=== PATIENT | female | born 1955 | race Caucasian/White ===

== ENCOUNTER 2016-05-20 08:05 | Outpatient (CLI) | payer OTHER | END 2016-05-20 08:06 | disposition home or self-care (01) | DX: E03.9 Hypothyroidism, unspecified (principal); E78.2 Mixed hyperlipidemia; E53.8 Deficiency of other specified B group vitamins; R73.09 Other abnormal glucose; Z79.899 Other long term (current) drug therapy ==

== ENCOUNTER 2017-05-07 16:02 | Outpatient (CLI) | payer OTHER ==
--- NOTE | 2017-05-08 15:25 | Mammography Report ---
DIGITAL SCREENING MAMMOGRAM; 05/07/2017 CLINICAL INDICATION: A 62-year-old nulliparous patient with history of benign left breast biopsy, for screening. COMPARISON: 02/2015, 11/2012, 08/2011, 03/2009. TECHNIQUE: Routine CC and MLO projections were obtained of the breasts. FINDINGS: The breasts again demonstrate heterogeneously dense fibroglandular parenchyma bilaterally. Punctate, typically benign calcifications are present. There is a possible nodule in the left upper inner anterior breast. Further evaluation with spot compression views and possible ultrasound is recommended. No mammographically suspicious findings are appreciated in the right breast. IMPRESSION: INCOMPLETE EXAMINATION. RECOMMENDATION: ADDITIONAL EVALUATION OF THE LEFT BREAST ABOVE. BIRADS CATEGORY 0-INCOMPLETE. STANDARD QUALIFYING STATEMENTS: 1. This examination was reviewed with the aid of Computer-Aided Detection (CAD). 2. A negative or benign imaging report should not delay biopsy if clinically suspicious findings are present. Consider surgical consultation if warranted. More than 5% of cancers are not identified by imaging. 3. Dense breasts may obscure an underlying neoplasm. TD: 05/08/2017 15:23
== END 2017-05-07 16:03 | disposition home or self-care (01) ==
LOC: DI 16:02
PROVIDERS: ATTEND Internal Medicine
DX: Z12.31 Encounter for screening mammogram for malignant neoplasm of breast (principal); R92.8 Other abnormal and inconclusive findings on diagnostic imaging of breast
CPT/HCPCS: 77067

== ENCOUNTER 2017-06-22 13:55 | Outpatient (CLI) | payer OTHER ==
--- NOTE | 2017-06-22 17:12 | Ultrasound Report ---
ULTRASOUND LEFT BREAST: 06/22/2017 CLINICAL INDICATION: Nodule on diagnostic. TECHNIQUE: Real-time scanning was performed with sales representative [employer] static images obtained. FINDINGS: Ultrasound of the left upper inner quadrant was performed. At the 11:30 position, 3 cm from the nipple, there is a hypoechoic predominantly circumscribed nodule measuring 1.2 x 1.0 x 0.7 cm. It demonstrates minimal associated vascularity and posterior acoustic enhancement. This likely represents a fibroadenoma, but pathologic confirmation is recommended. The nodule appears amenable to ultrasound-guided core needle biopsy. IMPRESSION: SUSPICIOUS SOLID NODULE CORRELATING WITH THE MAMMOGRAPHIC ABNORMALITY. RECOMMENDATION: Biopsy. The nodule appears amenable to ultrasound-guided core needle biopsy. BI-RADS category 4 suspicious abnormality. Results and recommendations discussed with the patient at the time of the examination, and called to Dr. Zuleta on 06/22/2017. Biopsy is scheduled on 07/16/2017 at 9 a.m. TD: 06/22/2017 17:11
--- NOTE | 2017-06-22 17:36 | Mammography Report ---
DIGITAL DIAGNOSTIC LEFT MAMMOGRAM: 06/22/2017 CLINICAL INDICATION: Possible nodule on screening. TECHNIQUE: Left true lateral and spot compression views. COMPARISON: 05/07/2017, 03/07/2015, 12/10/2012, 09/01/2011. FINDINGS: The left breast again demonstrates heterogeneously dense fibroglandular parenchyma. The circumscribed nodule in the left upper inner anterior breast persists on additional compression, measuring approximately 1 cm. No associated calcifications are seen. Please also refer to left breast ultrasound of the same day. IMPRESSION: SUSPICIOUS ABNORMALITY, WITH A SOLID NODULE ON ULTRASOUND CORRELATING WITH THE MAMMOGRAPHIC ABNORMALITY. RECOMMENDATION: Biopsy. The nodule appears amenable to ultrasound-guided core needle biopsy. BI-RADS category 4 suspicious abnormality. Results and recommendations discussed with the patient at the time of the examination, and called to Dr. Zuleta on 06/22/2017. Biopsy is scheduled for 07/16/2017 at 9 a.m. STANDARD QUALIFYING STATEMENTS 1. This examination was reviewed with the aid of Computed-Aided Detection (CAD). 2. A negative or benign imaging report should not delay biopsy if clinically suspicious findings are present. Consider surgical consultation if warranted. More than 5% of cancers are not identified by imaging. 3. Dense breasts may obscure an underlying neoplasm. TD: 06/22/2017 17:35
== END 2017-06-22 13:56 | disposition home or self-care (01) ==
LOC: DI 13:55
PROVIDERS: ATTEND Internal Medicine
DX: R92.8 Other abnormal and inconclusive findings on diagnostic imaging of breast (principal); N63.0 Unspecified lump in unspecified breast
CPT/HCPCS: 76642

== ENCOUNTER 2017-07-10 09:13 | Outpatient (CLI) | payer OTHER ==
[2017-07-10 13:24] LABS: BASOPHILS # (AUTO) 0.1 10^3/uL (0.0-0.1); BASOPHILS % (AUTO) 1.3 %; EOSINOPHILS # (AUTO) 0.2 10^3/uL (0.0-0.7); EOSINOPHILS % (AUTO) 4.3 %; LYMPHOCYTES # (AUTO) 1.2 10^3/uL (1.5-3.5); LYMPHOCYTES % (AUTO) 25.5 %; MEAN CORPUSCULAR HEMOGLOBIN 31.6 pg (27.0-31.0); MEAN CORPUSCULAR HGB CONC 33.7 g/dL (32.0-36.0); MEAN CORPUSCULAR VOLUME 93.7 fL (81.0-99.0); MEAN PLATELET VOLUME 7.8 fL (7.9-10.8); MONOCYTES # (AUTO) 0.4 10^3/uL (0.0-1.0); MONOCYTES % (AUTO) 9.5 %; NEUTROPHILS # (AUTO) 2.8 10^3/uL (1.5-6.6); NEUTROPHILS % (AUTO) 59.4 %; PLT - PLATELET COUNT 342 10^3/uL (130-450); RED BLOOD COUNT 4.13 10^6/uL (4.20-5.40); WHITE BLOOD COUNT 4.7 x10^3/uL (4.8-10.8)
[2017-07-10 13:42] LABS: ALBUMIN 4.5 g/dL (3.2-5.5); ALBUMIN/GLOBULIN RATIO 1.9 (1.0-2.2); ALKALINE PHOSPHATASE 20 IU/L (42-121); ALT ALANINE AMINOTRANSFERASE 20 IU/L (10-60); AST ASPARTATE AMINOTRANSFERASE 24 IU/L (10-42); BILIRUBIN,TOTAL 0.5 mg/dL (0.2-1.0); BUN - BLOOD UREA NITROGEN 12 mg/dL (6-20); CALCIUM 9.3 mg/dL (8.5-10.3); CARBON DIOXIDE - CO2 27 mmol/L (21-32); CHLORIDE 102 mmol/L (101-111); CHOL/HDL RATIO 1.9 (<4.4); CHOLESTEROL 243 mg/dL; CREATININE 0.6 mg/dL (0.4-1.0); GFR - MDRD 101 (>89); GLUCOSE 92 mg/dL (70-100); HDL CHOLESTEROL 128 mg/dL; LDL CHOLESTEROL,CALCULATED 106 mg/dL; LDL/HDL RATIO 0.8 (<4.4); SODIUM 136 mmol/L (135-145); TOTAL PROTEIN 6.9 g/dL (6.7-8.2); VLDL CHOLESTEROL 9 mg/dL
[2017-07-10 13:49] LABS: THYROID STIMULATING HORMONE 2.63 uIU/mL (0.34-5.60)
[2017-07-10 14:10] LABS: HB2 TOTAL 14.3 g/dL; HEMOGLOBIN A1C 0.51 g/dL; HEMOGLOBIN A1C % 5.4 % (4.6-6.2)
== END 2017-07-10 09:14 | disposition home or self-care (01) ==
LOC: LAB.R 09:13
PROVIDERS: ATTEND Nurse Practitioner Primary Care
DX: E55.9 Vitamin D deficiency, unspecified (principal); Z79.899 Other long term (current) drug therapy; R73.01 Impaired fasting glucose; E03.9 Hypothyroidism, unspecified; E78.5 Hyperlipidemia, unspecified
CPT/HCPCS: 80053; 80061; 82306; 82607; 83036; 83721; 84443; 85025

== ENCOUNTER 2017-07-16 08:28 | Outpatient (CLI) | payer OTHER ==
--- NOTE | 2017-07-16 13:21 | Ultrasound Report ---
ULTRASOUND-GUIDED CORE NEEDLE BIOPSY OF LEFT BREAST: 07/16/2017 CLINICAL INDICATION: Target nodule measuring 1.2 cm at the 11:30 position of the left breast 3 cm from the nipple. TECHNIQUE/FINDINGS: Informed consent was obtained. Using standard aseptic technique, both 1% buffered lidocaine and Sensorcaine were injected into the left breast for local anesthesia. A small shannan was made in the skin with a #11 blade. A 12-gauge Celero vacuum-assisted device was used to obtain three specimens. A Celero marker was placed in the biopsy cavity under ultrasound guidance. The patient was taken to a separate mammography machine, and a two view digital mammogram was performed, documenting the marker in the expected location and no significant postbiopsy hematoma. The wound was dressed and ice applied. The patient was observed for approximately 15 minutes, then was discharged from [facility] in good condition following instructions on wound care and obtaining biopsy results. The tissue was sent for histologic analysis. IMPRESSION: 1. ULTRASOUND-GUIDED BIOPSY OF THE LEFT BREAST. 2. AN ADDENDUM WILL BE MADE TO THIS REPORT WHEN PATHOLOGY IS REVIEWED TO ESTABLISH CONCORDANCE. TD: 07/16/2017 12:43
[2017-07-16] MEDS ORDERED: LIDOCAINE 1% 10 ML MDV SUBQ ONE (14:07)
[2017-07-16] MEDS ORDERED: BUPIVACAINE 0.5%-EPI 1:200000 PF 10 ML VIAL SUBQ ONE (14:07)
--- NOTE | 2017-08-31 13:41 | Mammography Report ---
EXAM: [id number] US/BX ([id number]) ULTRASOUND-GUIDED CORE NEEDLE BIOPSY OF LEFT BREAST: 07/16/2017 CLINICAL INDICATION: Target nodule measuring 1.2 cm at the 11:30-position of the left breast 3 cm from the nipple. TECHNIQUE/FINDINGS: Informed consent was obtained. Using standard aseptic technique, both 1% buffered lidocaine and Sensorcaine were injected into the left breast for local anesthesia. A small shannan was made in the skin with a #11 blade. A 12-gauge Celero vacuum- assisted device was used to obtain three specimens. A Celero marker was placed in the biopsy cavity under ultrasound guidance. The patient was taken to a separate mammography machine, and a two view digital mammogram was performed, documenting the marker in the expected location and no significant postbiopsy hematoma. The wound was dressed and ice applied. The patient was observed for approximately 15 minutes, then was discharged from [facility] in good condition following instructions on wound care and obtaining biopsy results. The tissue was sent for histologic analysis. IMPRESSION 1. ULTRASOUND-GUIDED BIOPSY OF THE LEFT BREAST. 2. AN ADDENDUM WILL BE MADE TO THIS REPORT WHEN PATHOLOGY IS REVIEWED TO ESTABLISH CONCORDANCE. TD: 07/16/2017 12:43 Able Bodied Seaman: Cristel Radiologist: Javier Cheatham MD Releasing Radiologist: Javier Cheatham MD Released Date Time: 07/16/17 1413 <Electronically signed by Javier Cheatham MD> cc: Joshua Zuleta MD ADDENDUM PATHOLOGY ADDENDUM OF 07/20/2017 PATHOLOGIC DIAGNOSIS ON THE LEFT BREAST CORE BIOPSY SPECIMEN: Fibroadenoma. Surrounding breast tissue negative for in situ or invasive carcinoma. Results are concordant with the mammographic appearance. IMPRESSION: BENIGN. BIRADS CATEGORY 2 - BENIGN FINDINGS. RECOMMENDATIONS: Suggest followup mammography in 1 year. TD: 07/20/2017 16:07 Addendum Able Bodied Seaman: KAJAL Addendum Reading Radiologist: Annelise Day MD Addendum Releasing Radiologist: Annelise Day MD Addendum Released Date Time: 07/21/17 1007 REVISED: DOCUMENT INCLUDES BOTH ORDERS [id number] & [id number] COMBINED 7/16/18 jll MTDD
== END 2017-07-16 08:29 | disposition home or self-care (01) ==
LOC: DI 08:28
PROVIDERS: ATTEND Internal Medicine
DX: D24.2 Benign neoplasm of left breast (principal)
CPT/HCPCS: 19083; 88305

== ENCOUNTER 2018-04-01 08:00 | Outpatient (CLI) | payer OTHER ==
[2018-04-01 17:47] LABS: BASOPHILS # (AUTO) 0.1 10^3/uL (0.0-0.1); BASOPHILS % (AUTO) 1.3 %; EOSINOPHILS # (AUTO) 0.1 10^3/uL (0.0-0.7); EOSINOPHILS % (AUTO) 2.3 %; HGB - HEMOGLOBIN 12.5 g/dL (12.0-16.0); LYMPHOCYTES # (AUTO) 1.5 10^3/uL (1.5-3.5); LYMPHOCYTES % (AUTO) 32.7 %; MEAN CORPUSCULAR HEMOGLOBIN 31.3 pg (27.0-31.0); MEAN CORPUSCULAR HGB CONC 31.9 g/dL (32.0-36.0); MEAN CORPUSCULAR VOLUME 98.2 fL (81.0-99.0); MEAN PLATELET VOLUME 8.1 fL (7.9-10.8); MONOCYTES # (AUTO) 0.5 10^3/uL (0.0-1.0); MONOCYTES % (AUTO) 10.6 %; NEUTROPHILS # (AUTO) 2.5 10^3/uL (1.5-6.6); NEUTROPHILS % (AUTO) 53.1 %; PLT - PLATELET COUNT 319 10^3/uL (130-450); RED BLOOD COUNT 3.98 10^6/uL (4.20-5.40); WHITE BLOOD COUNT 4.6 x10^3/uL (4.8-10.8)
[2018-04-01 17:57] LABS: ALBUMIN 4.5 g/dL (3.2-5.5); ALKALINE PHOSPHATASE 22 IU/L (42-121); ALT ALANINE AMINOTRANSFERASE 22 IU/L (10-60); AST ASPARTATE AMINOTRANSFERASE 29 IU/L (10-42); BILIRUBIN,TOTAL 0.4 mg/dL (0.2-1.0); BUN - BLOOD UREA NITROGEN 18 mg/dL (6-20); CARBON DIOXIDE - CO2 25 mmol/L (21-32); CHLORIDE 104 mmol/L (101-111); CREATININE 0.7 mg/dL (0.4-1.0); GFR - MDRD 85 (>89); GLUCOSE 94 mg/dL (70-100); SODIUM 137 mmol/L (135-145); TOTAL PROTEIN 6.8 g/dL (6.7-8.2)
[2018-04-01 18:06] LABS: CRP - C-REACTIVE PROTEIN < 1.0 mg/dL (0-1.0)
== END 2018-04-01 23:59 | disposition home or self-care (01) ==
LOC: LAB.R 08:00
PROVIDERS: ATTEND Nurse Practitioner Primary Care
DX: R53.83 Other fatigue (principal); M79.10 Myalgia, unspecified site; E03.9 Hypothyroidism, unspecified; Z79.899 Other long term (current) drug therapy
CPT/HCPCS: 80053; 84443; 85025; 85651; 86140

== ENCOUNTER 2018-07-28 10:28 | Emergency (ER) | payer OTHER ==
[2018-07-28 11:01] LABS: BASOPHILS % (AUTO) 0.9 %; EOSINOPHILS # (AUTO) 0.1 10^3/uL (0.0-0.7); EOSINOPHILS % (AUTO) 2.1 %; HGB - HEMOGLOBIN 13.1 g/dL (12.0-16.0); LYMPHOCYTES # (AUTO) 1.1 10^3/uL (1.5-3.5); LYMPHOCYTES % (AUTO) 21.7 %; MEAN CORPUSCULAR HEMOGLOBIN 31.5 pg (27.0-31.0); MEAN CORPUSCULAR HGB CONC 33.7 g/dL (32.0-36.0); MEAN CORPUSCULAR VOLUME 93.4 fL (81.0-99.0); MEAN PLATELET VOLUME 7.4 fL (7.9-10.8); MONOCYTES # (AUTO) 0.5 10^3/uL (0.0-1.0); NEUTROPHILS # (AUTO) 3.2 10^3/uL (1.5-6.6); NEUTROPHILS % (AUTO) 64.3 %; PLT - PLATELET COUNT 340 10^3/uL (130-450); RED BLOOD COUNT 4.15 10^6/uL (4.20-5.40); RED CELL DISTRIBUTION WIDTH 13.2 % (12.0-15.0); WHITE BLOOD COUNT 4.9 x10^3/uL (4.8-10.8)
--- NOTE | 2018-07-28 11:11 | ED Physician Documentation ---
PD HPI ABD PAIN - Stated complaint Stated Complaint: ABD PX/NAUSEA - Chief complaint Chief Complaint: Abd Pain - History obtained from History obtained from: Patient - History of Present Illness Timing - onset: How many days ago Timing - duration: Days Timing - details: Abrupt onset, Still present, Waxing and waning Quality: Cramping, Aching, Pain Location: Periumbilical, RLQ Radiation: No: Chest, Lower back, Left flank, Right flank Improved by: Position (rested). No: Eating Worsened by: Moving, Palpation (around the umbilical and mid abdomen). No: Eating Associated symptoms: No: Fever, Nausea, Diarrhea, Constipation, Dysuria, Chest pain, Loss of appetite Similar symptoms before: Other (She had had ruptured appendicitis with peritonitis and surgery remotely in the past and developed a ventral hernia that was repaired with mesh a couple years later. She had been doing okay with that. The last few days she has been having some pain around the mid abdomen and feel s that its around the bellybutton where the prior hernia had been. She did not feel a hernia per se. She denied any distention nausea vomiting or diarrhea and has not been constipated. She does feel a little bit of bloating with eating.) Recently seen: Not recently seen Review of Systems Constitutional: denies: Fever Nose: denies: Rhinorrhea / runny nose, Congestion Throat: denies: Sore throat Respiratory: denies: Cough GI: reports: Abdominal Pain. denies: Abdominal Swelling, Nausea, Vomiting, Diarrhea : denies: Dysuria, Frequency Skin: denies: Rash, Lesions Neurologic: denies: Generalized weakness, Near syncope PD PAST MEDICAL HISTORY - Past Medical History Cardiovascular: None Respiratory: None Endocrine/Autoimmune: HyPOthyroidism GI: None ICT DEVELOPER: None HEENT: None Psych: Depression Musculoskeletal: None Derm: None - Past Surgical History Past Surgical History: Yes General: Appendectomy, Hiatal hernia repair Ortho: Knee replacement - Present Medications Home Medications: Ambulatory Orders Medication Instructions Recorded Confirmed Levothyroxine [Synthroid] 100 mcg ORAL DAILY 09/24/13 09/24/13 PARoxetine [Paxil] 20 mg ORAL DAILY 09/24/13 09/24/13 Docusate Sodium 100 mg PO DAILY #30 capsule 07/28/18 Hydrocodone/Acetaminophen [Homer 1 each PO Q6H PRN #15 tablet 07/28/18 5-325 Tablet] Naproxen 500 mg PO BID #20 tablet 07/28/18 Ondansetron Odt [Zofran] 4 mg TL Q6H PRN #20 tablet 07/28/18 - Allergies Allergies/Adverse Reactions: Allergies Allergy/AdvReac Type Severity Reaction Status Date / Time hydroxyzine Allergy Hallucinati Verified 09/24/13 11:51 ons Penicillins Allergy Hives Verified 09/24/13 11:51 morphine AdvReac Respiratory Verified 07/28/18 10:36 - Social History Does the pt smoke?: No Smoking Status: Never smoker Does the pt drink ETOH?: Yes Does the pt have substance abuse?: No - Immunizations Immunizations are current?: No Immunizations: TDAP >10years/unknown PD ED PE NORMAL - Vitals Vital signs reviewed: Yes - General General: Alert and oriented X 3, No acute distress, Well developed/nourished - HEENT HEENT: Pharynx benign - Neck Neck: Supple, no meningeal sign, No adenopathy - Cardiac Cardiac: RRR, No murmur - Respiratory Respiratory: Clear bilaterally - Abdomen Abdomen: Normal bowel sounds, Soft, Non distended, No organomegaly, Other (There is some tenderness in the periumbilical area without any noted hernias or mass. Bowel sounds are present and slightly hyperactive. There is no distention noted. There is no percussion or rebound tenderness.) - Back Back: No CVA TTP - Derm Derm: Normal color, Warm and dry - Neuro Neuro: Alert and oriented X 3, No motor deficit, Normal speech Results - Vitals Vitals: Vital Signs - 24 hr 07/28/18 10:34 Temperature 36 C L Heart Rate 76 Respiratory 20 Rate Blood Pressure 123/64 O2 Saturation 97 Oxygen O2 Source Room air - Labs Labs: Laboratory Tests 07/28/18 07/28/18 07/28/18 10:54 10:54 11:02 WBC 4.9 RBC 4.15 L Hgb 13.1 Hct 38.8 MCV 93.4 MCH 31.5 H MCHC 33.7 RDW 13.2 Plt Count 340 MPV 7.4 L Neut # (Auto) 3.2 Lymph # (Auto) 1.1 L Stanton # (Auto) 0.5 Eos # (Auto) 0.1 Baso # (Auto) 0.0 Absolute Nucleated RBC 0.00 Nucleated RBC % 0.0 Sodium 136 Potassium 4.0 Chloride 99 L Carbon Dioxide 25 Anion Gap 12.0 BUN 14 Creatinine 0.7 Estimated GFR (MDRD) 85 L Glucose 137 H Calcium 9.6 Total Bilirubin 1.0 AST 26 ALT 19 Alkaline Phosphatase 21 L Total Protein 7.1 Albumin 4.5 Globulin 2.6 Albumin/Globulin Ratio 1.7 Lipase 33 Urine Color YELLOW Urine Clarity CLEAR Urine pH 6.0 Ur Specific [place] 1.015 Urine Protein NEGATIVE Urine Glucose (UA) NEGATIVE Urine Ketones NEGATIVE Urine Occult Blood NEGATIVE Urine Nitrite NEGATIVE Urine Bilirubin NEGATIVE Urine Urobilinogen 0.2 (NORMAL) Ur Leukocyte Esterase NEGATIVE Ur Microscopic Review NOT INDICATED Urine Culture Comments NOT INDICATED - Rads (name of study) abd CT Radiology: Prelim report reviewed (Diverticuli without any diverticulitis. No acute organ processes seen.), EMP read contemporaneously (Looking along the anterior abdominal wall, there is maybe the appearance of a mild hernia or some soft tissue in the enrrique-periumbilical area. This could be possibly given her some of her symptoms. No signs of obstruction pattern from it.), See rad report PD MEDICAL DECISION MAKING - ED course Complexity details: re-evaluated patient (She may be having some myofascial pain around the mesh. There could be a small recurrent hernia. Can have her follow-up with surgery regarding evaluation of that. There is some definite reticulo-without diverticulitis. No other acute processes seen. I think we can treat her with adequate fluids and anti-inflammatories and stool softener.), considered differential (Consider partial obstruction or some myofascial pain around the prior mesh and surgery. Consider recurrent hernia. Consider diverticulitis or colitis.), d/w patient Departure - Departure Disposition: 01 Home, Self Care Clinical Impression: Abdominal pain Qualifiers: Abdominal location: periumbilical Qualified Code(s): R10.33 - Periumbilical pain Condition: Stable Record reviewed to determine appropriate education?: Yes Instructions: ED Abdominal Pain Unkn Cause Follow-Up: Gurinder Zamudio MD [Primary Care Provider] - Kike Solis MD [Provider Admit Priv/Credential] - Prescriptions: Docusate Sodium 100 mg PO DAILY #30 capsule Hydrocodone/Acetaminophen [Homer 5-325 Tablet] 1 each PO Q6H PRN #15 tablet PRN Reason: Pain Naproxen 500 mg PO BID #20 tablet Ondansetron Odt [Zofran] 4 mg TL Q6H PRN #20 tablet PRN Reason: Nausea / Vomiting Comments: Stay well-hydrated. Use some naproxen anti-inflammatories twice daily with food for the next week or so. Add Tylenol or hydrocodone as needed for pain. Use docusate stool softener daily for the next 1 to 2 weeks. Ondansetron if needed for nausea. The CT scan did not show any acute process. There was some visible small hernia around the bellybutton area and this might be causing some discomfort. Alternatively there could be some adhesions or mild inflammation in the colon causing symptoms as well. The above medications should help improve these over the next several days or so. Follow-up with surgery or your primary care if consistent symptoms not improved over the next several days or so.
[2018-07-28 11:14] LABS: ALBUMIN 4.5 g/dL (3.2-5.5); ALBUMIN/GLOBULIN RATIO 1.7 (1.0-2.2); CALCIUM 9.6 mg/dL (8.5-10.3); CREATININE 0.7 mg/dL (0.4-1.0); TOTAL PROTEIN 7.1 g/dL (6.7-8.2)
[2018-07-28 11:23] LABS: BILIRUBIN,URINE NEGATIVE (NEGATIVE); GLUCOSE, URINE (UA) NEGATIVE (NEGATIVE); KETONES,URINE (UA) NEGATIVE (NEGATIVE); LEUKOCYTE ESTERASE, URINE NEGATIVE (NEGATIVE); NITRITE,URINE NEGATIVE (NEGATIVE); OCCULT BLOOD,URINE NEGATIVE (NEGATIVE); PROTEIN,URINE NEGATIVE (NEGATIVE); UROBILINOGEN,URINE 0.2 (NORMAL) E.U./dL (NORMAL)
[2018-07-28] MEDS ORDERED: SODIUM CHLORIDE 0.9% 1,000 ML IV ONE (11:23)
[2018-07-28] MEDS ORDERED: KETOROLAC 15 MG/ML VIAL IVP STA (11:23)
[2018-07-28] MEDS ORDERED: ONDANSETRON 4 MG/2 ML VIAL IVP STA (11:24)
[2018-07-28 11:28] LABS: CLARITY,URINE CLEAR (CLEAR)
[2018-07-28] MEDS ORDERED: IOVERSOL 320 100 ML VIAL IVP ONE ×2 (11:43→16:41)
--- NOTE | 2018-07-28 13:08 | CT Report ---
Reason: id abd pain and bloating for 3 days Procedure Date: 07/28/2018 Accession Number: [id number] / [id number] Procedure: CT - Abdomen/Pelvis W CPT Code: FULL RESULT: EXAM: CT ABDOMEN AND PELVIS EXAM DATE: 07/28/2018 11:56 AM. CLINICAL HISTORY: Abdominal pain and bloating for 3 days. COMPARISONS: 07/26/2010 1:59 PM ABD/PEL 07/13/2009 11:45 AM. TECHNIQUE: Routine helical CT imaging was performed through the abdomen and pelvis. IV contrast: 100 cc of Optiray 320. Enteric contrast: No. Reconstructions: Coronal and sagittal. In accordance with CT protocol optimization, one or more of the following dose reduction techniques were utilized for this exam: automated exposure control, adjustment of mA and/or KV based on patient size, or use of iterative reconstructive technique. FINDINGS: Lung Bases: Bibasilar scar/atelectasis. Included portions of the heart are unremarkable. Liver: Right hepatic lobe lesions are unchanged. Patent portal vein. No new hepatic lesions. Gallbladder/Bile Ducts: Contracted gallbladder. No biliary ductal dilatation. Spleen: Normal. Pancreas: Normal. Adrenal Glands: Normal. Kidneys: Kidneys enhance symmetrically. No hydronephrosis. No nephrolithiasis. No ureteral dilatation or ureteral calculi. Peritoneal Cavity/Bowel: Stomach is mildly distended and unremarkable. No small bowel obstruction or small bowel wall thickening. Changes are again seen from ventral hernia repair, as before. No adjacent fluid collections are identified. Fluid and stool are seen in the colon. Diverticula are seen in the distal colon. No diverticulitis. No free air. No free fluid. No enlarged retroperitoneal or mesenteric lymph nodes. Appendix not distinctly seen. No right lower quadrant or pericecal inflammatory changes. Pelvic Organs: Urinary bladder mildly distended and unremarkable. Within the right adnexa/right ovary is a low-attenuation 3.8 x 3.4 x 4.1 cm lesion increased in size compared to 07/26/2010, previously measured 2.1 x 2.0 x 2 cm. No pelvic adenopathy. No pelvic free fluid. Vasculature: No aneurysms or other significant abnormality. Bones: No acute osseous abnormalities. Degenerative changes of the lower thoracic and lumbar spine. Levoscoliosis of the lumbar spine for lumbar facet arthropathy. Degenerative changes of both hip joints. Grade 1 anterolisthesis of and L4 on L5 and L5 on S1. Bilateral L5 pars interarticularis defects. Other: None. IMPRESSION: 1. Mild distal colonic diverticulosis. No diverticulitis. No bowel obstruction. No bowel wall thickening. 2. Appendix not visualized. No right lower quadrant or pericecal inflammatory changes. 3. No nephrolithiasis. No hydronephrosis. 4. Right hepatic lobe lesions, stable. 5. Increase in size of low-attenuation right adnexal cystic lesion currently measuring 4.1 cm, previously 2.1 cm. Nonemergent follow-up pelvic ultrasound recommended for further evaluation due to increase in size. RADIA
[2018-07-28 14:32] VITALS: BP 138/91
== END 2018-07-28 14:32 | disposition home or self-care (01) ==
LOC: ED 10:28
DX: R10.33 Periumbilical pain (principal); R10.31 Right lower quadrant pain; K57.30 Diverticulosis of large intestine without perforation or abscess without bleeding
CPT/HCPCS: 36415; 74177; 80053; 81003; 83690; 85025; 96361; 96374; 99283; Q9967; 81001; 87086

== ENCOUNTER 2018-08-08 09:43 | Outpatient (CLI) | payer OTHER ==
--- NOTE | 2018-08-09 09:46 | Ultrasound Report ---
Reason: UNSPECIFIED OVARIAN CYST, RIGHT SIDE Procedure Date: 08/08/2018 Accession Number: [id number] / [id number] Procedure: US - Pelvic w/Transvaginal CPT Code: FULL RESULT: EXAM: PELVIC ULTRASOUND EXAM DATE: 08/08/2018 10:37 AM. CLINICAL HISTORY: Unspecified ovarian cyst, right side. COMPARISON: ABDOMEN/PELVIS W/ 07/28/2018 11:48 AM ABD/PEL 07/13/2009 11:45 AM. TECHNIQUE: Realtime transabdominal pelvic scan performed to identify the uterus and adnexa and as an overview of other pelvic structures, followed by transvaginal scan to provide greater detail of the uterus and adnexa, with static image documentation. FINDINGS: Uterus: 4.7 x 2.0 x 3.4 cm, volume 17 cc. Anteverted position. Normal overall size and echotexture. Masses: None. Endometrium: 3 mm. A focal cystic area measuring 3 mm is noted, nonspecific. Cervix: Note is made of calcifications, nonspecific. Right Ovary: 4.2 x 2.9 x 3.6 cm, volume 23 cc. A 3.9 x 2.9 x 3.5 cm cyst with thick blanco and no internal echoes is demonstrated. On the 2010 CT the cyst measures 1.9 x 1.9 cm in axial dimensions as seen on image 77 series 3. Left Ovary: Not seen. Free Fluid: None. Other: None. IMPRESSION: Compared to 2009, slow enlargement of the right ovarian cystic lesion. RADIA
== END 2018-08-08 09:44 | disposition home or self-care (01) ==
LOC: DI 09:43
PROVIDERS: ATTEND Internal Medicine
DX: N83.201 Unspecified ovarian cyst, right side (principal)
CPT/HCPCS: 76830; 76856

== ENCOUNTER 2018-08-24 08:00 | Outpatient (CLI) | payer OTHER | END 2018-08-24 23:59 | disposition home or self-care (01) | LOC: LAB 08:00 | PROVIDERS: ATTEND Obstetrics & Gynecology | DX: N83.9 Noninflammatory disorder of ovary, fallopian tube and broad ligament, unspecified (principal) | CPT/HCPCS: 81599; 82378; 86304; 86305 ==

== ENCOUNTER 2018-12-02 16:14 | Outpatient (CLI) | payer OTHER ==
--- NOTE | 2018-12-04 04:33 | XRAY Report ---
Reason: JOINT EFFUSION, LEFT KNEE Procedure Date: 12/02/2018 Accession Number: [id number] / [id number] Procedure: XR - Knee 3 View LT CPT Code: Addended Final Report FULL RESULT: EXAM: LEFT KNEE RADIOGRAPHY EXAM DATE: 12/02/2018 04:30 PM. CLINICAL HISTORY: Joint effusion, left knee. Left knee pain for 3 years, worsening over the last 1-1/2 weeks. COMPARISON: KNEE 3 VIEW LT 06/07/2015 3:55 PM. TECHNIQUE: 3 views. FINDINGS: Bones: No acute displaced fractures or suspicious bony lesion. Joints: Medial compartmental joint replacement is noted. Moderate severe lateral compartmental degenerative joint disease. Small effusion. No dislocation. Soft Tissues: No significant soft tissue swelling. IMPRESSION: Moderate to severe lateral compartmental degenerative joint disease, progressed on the prior exam. Stable appearance of the right medial knee prosthesis without acute abnormality. [facility] ADDENDUM: 12/27/18 21:03 Correction to prior dictated impression. The correct impression should read as follows: Moderate to severe lateral compartmental degenerative joint disease, progressed from the prior exam. Stable appearance of the left medial knee prosthesis without acute abnormality.
== END 2018-12-02 16:15 | disposition home or self-care (01) ==
LOC: DI 16:14
PROVIDERS: ATTEND Family Medicine
DX: M17.12 Unilateral primary osteoarthritis, left knee (principal); M25.462 Effusion, left knee; Z96.652 Presence of left artificial knee joint

== ENCOUNTER 2018-12-16 07:28 | Outpatient (CLI) | payer OTHER ==
--- NOTE | 2018-12-16 09:56 | Ultrasound Report ---
Reason: OVARIAN MASS Procedure Date: 12/16/2018 Accession Number: [id number] / [id number] Procedure: US - Pelvic w/Transvaginal CPT Code: FULL RESULT: EXAM: PELVIC ULTRASOUND EXAM DATE: 12/16/2018 08:29 AM. CLINICAL HISTORY: OVARIAN MASS. COMPARISON: PELVIC W/TRANSVAGINAL 08/08/2018 9:51 AM ABDOMEN/PELVIS W/ 07/28/2018 11:48 AM. TECHNIQUE: Realtime transabdominal pelvic scan performed to identify the uterus and adnexa and as an overview of other pelvic structures, followed by transvaginal scan to provide greater detail of the uterus and adnexa, with static image documentation. FINDINGS: Uterus: 5.8 x 2.0 x 3.7 cm, volume 23 cc. Anteverted position. Normal overall size and echotexture. Masses: 1. Posterior lower uterine segment fibroid 1.4 x 1.2 x 1.3 cm, not previously visualized. Endometrium: 3 mm. Similar appearing small cystic region measuring 5 x 2 mm. Cervix: Grossly similar nonspecific echogenic foci suggesting calcifications. Right Ovary: 4.2 x 3.4 x 3.8 cm, volume 28 cc. Normal echotexture and blood flow. There is a simple appearing cyst measuring 3.6 x 2.8 x 3.5 cm, previously 3.9 x 2.9 x 3.5 cm. Left Ovary: 2.3 x 1.1 x 1.2 cm, volume 1.7 cc. Normal echotexture and blood flow. Free Fluid: Nonspecific slowing Free pelvic fluid. Other: None. IMPRESSION: 1. Simple-appearing 3.6 cm right ovarian cyst, probably stable in size accounting for expected variation in measurement technique. Recommend follow-up ultrasound in approximately 20 months (2 years from the initial ultrasound study) to confirm long-term stability. 2. Similar nonspecific small endometrial cystic region. 3. Similar nonspecific cervix region calcifications. RADIA
== END 2018-12-16 07:29 | disposition home or self-care (01) ==
LOC: DI 07:28
PROVIDERS: ATTEND Obstetrics & Gynecology
DX: N83.291 Other ovarian cyst, right side (principal); N85.8 Other specified noninflammatory disorders of uterus
CPT/HCPCS: 76830; 76856

== ENCOUNTER 2020-03-07 08:00 | Outpatient (CLI) | payer OTHER ==
[2020-03-07 12:43] LABS: ALBUMIN 4.5 g/dL (3.2-5.5); ALKALINE PHOSPHATASE 19 IU/L (42-121); ALT ALANINE AMINOTRANSFERASE 17 IU/L (10-60); AST ASPARTATE AMINOTRANSFERASE 25 IU/L (10-42); BILIRUBIN,TOTAL 0.8 mg/dL (0.2-1.0); BUN - BLOOD UREA NITROGEN 15 mg/dL (6-20); CALCIUM 9.5 mg/dL (8.5-10.3); CARBON DIOXIDE - CO2 27 mmol/L (21-32); CHLORIDE 98 mmol/L (101-111); CHOL/HDL RATIO 2.3 (<4.4); CHOLESTEROL 282 mg/dL; CREATININE 0.7 mg/dL (0.4-1.0); GLUCOSE 93 mg/dL (70-100); HDL CHOLESTEROL 124 mg/dL; LDL CHOLESTEROL,CALCULATED 149 mg/dL; LDL/HDL RATIO 1.2 (<4.4); TOTAL PROTEIN 6.8 g/dL (6.7-8.2); VLDL CHOLESTEROL 9 mg/dL
[2020-03-07 12:47] LABS: THYROID STIMULATING HORMONE 2.44 uIU/mL (0.34-5.60)
[2020-03-07 12:48] LABS: FREE T3 2.27 pg/mL (2.5-3.9)
[2020-03-07 12:49] LABS: FREE T4 (FREE THYROXINE) 0.97 ng/dL (0.58-1.64)
[2020-03-07 12:52] LABS: BASOPHILS # (AUTO) 0.1 10^3/uL (0.0-0.1); EOSINOPHILS # (AUTO) 0.2 10^3/uL (0.0-0.7); HGB - HEMOGLOBIN 13.4 g/dL (12.0-16.0); LYMPHOCYTES # (AUTO) 1.2 10^3/uL (1.5-3.5); LYMPHOCYTES % (AUTO) 25.5 %; MEAN CORPUSCULAR HEMOGLOBIN 31.3 pg (27.0-31.0); MEAN CORPUSCULAR HGB CONC 33.1 g/dL (32.0-36.0); MEAN CORPUSCULAR VOLUME 94.6 fL (81.0-99.0); MEAN PLATELET VOLUME 9.5 fL (7.9-10.8); MONOCYTES # (AUTO) 0.5 10^3/uL (0.0-1.0); MONOCYTES % (AUTO) 11.3 %; NEUTROPHILS # (AUTO) 2.8 10^3/uL (1.5-6.6); NEUTROPHILS % (AUTO) 57.8 %; PLT - PLATELET COUNT 380 10^3/uL (130-450); RED BLOOD COUNT 4.28 10^6/uL (4.20-5.40); RED CELL DISTRIBUTION WIDTH 13.2 % (12.0-15.0); WHITE BLOOD COUNT 4.8 x10^3/uL (4.8-10.8)
== END 2020-03-07 23:59 | disposition home or self-care (01) ==
LOC: LAB.WCP 08:00
PROVIDERS: ATTEND Nurse Practitioner
DX: R73.01 Impaired fasting glucose (principal); E78.5 Hyperlipidemia, unspecified; E03.9 Hypothyroidism, unspecified; F32.9 Major depressive disorder, single episode, unspecified; M19.90 Unspecified osteoarthritis, unspecified site; I47.1 Supraventricular tachycardia
CPT/HCPCS: 36415; 80053; 80061; 83721; 84439; 84443; 84481; 85025

== ENCOUNTER 2020-03-07 08:31 | Outpatient (CLI) | payer OTHER ==
--- NOTE | 2020-03-07 17:44 | XRAY Report ---
PROCEDURE: Chest 2 View X-Ray INDICATIONS: COUGH TECHNIQUE: 2 view(s) of the chest. COMPARISON: None. FINDINGS: Surgical changes and devices: None. Lungs and pleura: No pleural effusions or pneumothorax. Lungs are clear. Mediastinum: Mediastinal contours are normal. Heart size is normal. Bones and chest wall: No suspicious bony abnormalities. Soft tissues appear unremarkable. IMPRESSION: No acute cardiopulmonary disease process. Reviewed by: Rivka Lew MD, PhD on 03/07/2020 4:42 PM [facility] Approved by: Rivka Lew MD, PhD on 03/07/2020 4:42 PM [facility] Station ID: [id number]
== END 2020-03-07 23:59 | disposition home or self-care (01) ==
LOC: DI.WCP 08:31
PROVIDERS: ATTEND Nurse Practitioner
DX: R05 Cough (principal)

== ENCOUNTER 2020-06-01 08:28 | Day surgery (SDC) | payer OTHER, MEDICARE ==
[2020-06-01] MEDS ORDERED: LACTATED RINGERS 1,000 ML IV ONE ×2 (08:57→10:28)
[2020-06-01] MEDS ORDERED: ONDANSETRON 4 MG/2 ML VIAL IVP PRN (09:01)
[2020-06-01] MEDS ORDERED: ATROPINE ABBOJECT 1 MG/10 ML SYRINGE IVP PRN (09:01)
[2020-06-01] MEDS ORDERED: fentaNYL 100 MCG/2 ML VIAL IVP PRN (09:01)
[2020-06-01] MEDS ORDERED: NALOXONE 0.4 MG/ML VIAL IVP PRN (09:01)
[2020-06-01] MEDS ORDERED: ePHEDrine 50 MG/ML VIAL IVP PRN (09:01)
--- NOTE | 2020-06-01 09:01 | ANESTHESIA ---
Pre-Anesthesia VS, & Labs - Diagnosis screening colonoscopy - Procedure colonoscopy Vital Signs: Temp Pulse Resp BP Pulse Ox 36.0 C L 70 18 131/88 H 96 06/01/20 08:43 06/01/20 08:43 06/01/20 08:43 06/01/20 08:43 06/01/20 08:43 Height: 5 ft 8 in Weight (kg): 73.8 kg Body Mass Index: 24.7 BMI Classification: Healthy weight - NPO >8 hours - Is Patient ?: No Home Medications and Allergies Levothyroxine [Synthroid] 100 mcg ORAL DAILY 09/24/13 PARoxetine [Paxil] 20 mg ORAL DAILY 09/24/13 Allergies/Adverse Reactions: Allergies Allergy/AdvReac Type Severity Reaction Status Date / Time hydroxyzine Allergy Hallucinati Verified 09/24/13 11:51 ons Penicillins Allergy Hives Verified 09/24/13 11:51 morphine AdvReac Respiratory Verified 07/28/18 10:36 Anes History & Medical History - Anesthetic History Anesthesia Complications: reports: No previous complications Family history of Anesthesia Complications: Denies Family history of Malignant Hyperthermia: Denies - Medical History Cardiovascular: reports: None Pulmonary: reports: None Gastrointestinal: reports: None Musculoskeletal: reports: None Endocrine/Autoimmune: reports: HyPOthyroidism Blood Disorders: reports: None Skin: reports: None Smoking Status: Never smoker - Surgical History General: reports: Appendectomy, Hiatal hernia repair Orthopedic: reports: Knee replacement Exam General: Alert, Oriented x3, Cooperative Dental: WNL Mouth Openin Fingerbreadth Neck Mobility: Normal Mallampati classification: II Thyromental Distance: 4-6 cm Respiratory: Lungs clear Cardiovascular: Regular rate Plan Anesthesia Type: General, Total IV Consent for Procedure(s) Verified and Reviewed: Yes Code Status: Attempt Resuscitation ASA classification: 2-Mild systemic disease Is this case an emergency?: No
[2020-06-01] MEDS ORDERED: LIDOCAINE-MPF 2% 5 ML VIAL ONE (09:04)
[2020-06-01] MEDS ORDERED: PROPOFOL 200 MG/20 ML VIAL IVP ONE ×2 (09:04→09:38)
[2020-06-01] MEDS ORDERED: LACTATED RINGERS 1,000 ML IV SCH (10:00)
[2020-06-01 11:17] VITALS: BP 118/74
--- NOTE | 2020-06-01 14:10 | ANESTHESIA POST OP EVALUATION ---
Anesthesia Post Eval - Post Anesthesia Eval Vitals: Last Vital Signs Temp 36.6 C 06/01/20 11:00 Pulse 72 06/01/20 11:16 Resp 15 06/01/20 11:16 BP 118/74 06/01/20 11:16 Pulse Ox 98 06/01/20 11:16 CV Function Including HR & BP: Stable Pain Control: Satisfactory Nausea & Vomiting: Negative Mental Status: Baseline Respiratory Status: Airway Patent Hydration Status: Satisfactory Anesthesia Complications: None
== END 2020-06-01 08:29 | disposition home or self-care (01) ==
LOC: SDS 08:28
PROVIDERS: ATTEND Surgery
DX: Z12.11 Encounter for screening for malignant neoplasm of colon (principal); R11.2 Nausea with vomiting, unspecified; K57.30 Diverticulosis of large intestine without perforation or abscess without bleeding; E03.9 Hypothyroidism, unspecified; Z79.899 Other long term (current) drug therapy
CPT/HCPCS: G0121; J7120

== ENCOUNTER 2020-07-20 14:35 | Outpatient (CLI) | payer MEDICARE, OTHER ==
--- NOTE | 2020-07-23 09:51 | Mammography Report ---
BILATERAL DIGITAL SCREENING MAMMOGRAM 3D/2D: 07/20/2020 CLINICAL: Routine screening. Comparison is made to exams dated: 05/07/2017 mammogram, 03/07/2015 mammogram, 07/16/2017 mammogram, an d 06/22/2017 mammogram - [facility]. The tissue of both breasts is heterogeneously d ense. This may lower the sensitivity of mammography. There is a biopsy clip in the left breast. No significant masses, calcifications, or other findings are seen in either breast. There has been no significant interval change. IMPRESSION: NEGATIVE There is no mammographic evidence of malignancy. A 1 year screening mammogram is recommended. This exam was interpreted at Station ID: [id number]. NOTE: For mammograms, a report in lay terms will be sent to the patient. Approximately 15% of breast malignancies will not be visualized mammographically. In the management of a palpable breast mass, a negative mammogram must not discourage biopsy of a clinically suspicious lesion. Electronically Signed By: Blake melendez/kaylee:07/20/2020 16:21:59 ACR BI-RADS Category 1: Negative 3341F PARENCHYMAL PATTERN: (D) - The breast(s) demonstrate(s) heterogeneously dense fibroglandular tim ho. BI-RADS CATEGORY: (1) - 1 RECOMMENDATION: (ANNUAL) - Recommend routine annual screening mammography. [id number] 1 year screening LATERALITY: (B)
== END 2020-07-20 14:36 | disposition home or self-care (01) ==
LOC: DI 14:35
DX: Z12.31 Encounter for screening mammogram for malignant neoplasm of breast (principal)

== ENCOUNTER 2021-04-26 08:17 | Outpatient (CLI) | payer MEDICARE, OTHER ==
--- NOTE | 2021-04-26 11:05 | DEXA Report ---
PROCEDURE: Dexa Spine and/or Hip INDICATIONS: POST MENOPAUSAL TECHNIQUE: Dual energy x-ray absorptiometry (DXA) was performed on a [employer] System. Regions measur ed are the AP Spine, femoral neck, and if needed forearm. COMPARISON: None. FINDINGS: Lumbar Spine: Bone Mineral Density 1.344 g/cm/cm,T score 1.4. Left Hip: Bone Mineral Density 1.069 g/cm/cm,T score 0.5. Left Femoral Neck: Bone Mineral Density 0.948 g/cm/cm, T score -0.6. (T score greater or equal to -1.0: NORMAL) (T score from -1.1 to -2.4: OSTEOPENIA) (T score less than or equal to -2.5 to: OSTEOPOROSIS) Impression: Normal bone mineral density. Patients with diagnosis of osteoporosis or osteopenia should have regular bone mineral density assess ment. For those eligible for Medicare, routine testing is allowed once every 2 years. Testing frequ ency can be increased for patients who have rapidly progressing disease or for those who are receivin g medical therapy to restore bone mass. Reviewed by: Luis Manuel Menchaca MD on 04/26/2021 11:03 AM PST Approved by: Luis Manuel Menchaca MD on 04/26/2021 11:03 AM PST Station ID: [id number]
== END 2021-04-26 08:18 | disposition home or self-care (01) ==
LOC: DI 08:17
PROVIDERS: ATTEND Physician Assistant
DX: Z78.0 Asymptomatic menopausal state (principal)

== ENCOUNTER 2021-04-26 08:33 | Outpatient (CLI) | payer MEDICARE, OTHER ==
--- NOTE | 2021-04-26 14:45 | XRAY Report ---
PROCEDURE: Cervical Spine 2 View INDICATIONS: RADICULOPATHY AFFECTING ARM,SHOULDER PAIN JOINT RT TECHNIQUE: 3 views of the cervical spine were acquired. COMPARISON: None. FINDINGS: Bones: No fractures or dislocations to the T1 level. The lateral masses of C1 appear intact on the odontoid view. There is straightening of the cervical lordosis. Mild anterolisthesis demonstrated at C3-C4 and C4-C5. Moderate degenerative disc disease demonstrated at C5-C6 and C6-C7 with endplate scl erosis and osteophytosis. Mild degeneration present at C7-T1. There is also moderate multilevel facet arthropathy throughout the mid and lower cervical spine. No suspicious bony lesions. Soft tissues: No prevertebral soft tissue swelling. IMPRESSION: 1. Multilevel degenerative changes throughout the cervical spine as described including moderate dege nerative disc disease at C5-C6 and C6-C7. 2. Straightening of the cervical lordosis with mild anterolisthesis at C3-C4 and C4-C5. Reviewed by: Edgard Amaro MD on 04/26/2021 2:44 PM PST Approved by: Edgard Amaro MD on 04/26/2021 2:44 PM PST Station ID: [id number]
--- NOTE | 2021-04-26 17:05 | XRAY Report ---
PROCEDURE: Shoulder 2 View RT INDICATIONS: RADICULOPATHY AFFECING ARM,SHOULDER PAIN JOINT RT TECHNIQUE: 3 views of the shoulder were acquired. COMPARISON: None. FINDINGS: Bones: No fractures or dislocations. No suspicious bony lesions. Visualized ribs appear intact. Mi ld right acromioclavicular and glenohumeral joint osteoarthritis. Soft tissues: No suspicious soft tissue calcifications. IMPRESSION: Mild osteoarthritis. Reviewed by: Rivka Lew MD, PhD on 04/26/2021 5:03 PM PST Approved by: Rivka Lew MD, PhD on 04/26/2021 5:03 PM PST Station ID: [id number]
== END 2021-04-26 08:34 | disposition home or self-care (01) ==
LOC: DI 08:33
PROVIDERS: ATTEND Physician Assistant
DX: M43.12 Spondylolisthesis, cervical region (principal); M50.322 Other cervical disc degeneration at C5-C6 level; M47.812 Spondylosis without myelopathy or radiculopathy, cervical region; M47.813 Spondylosis without myelopathy or radiculopathy, cervicothoracic region; M19.011 Primary osteoarthritis, right shoulder; Z78.0 Asymptomatic menopausal state

== ENCOUNTER 2021-08-12 08:00 | Outpatient (CLI) | payer MEDICARE, OTHER ==
[2021-08-12 09:36] LABS: BASOPHILS % (AUTO) 0.8 %; EOSINOPHILS # (AUTO) 0.2 10^3/uL (0.0-0.7); HCT - HEMATOCRIT 36.5 % (37.0-47.0); HGB - HEMOGLOBIN 12.5 g/dL (12.0-16.0); LYMPHOCYTES % (AUTO) 18.8 %; MEAN CORPUSCULAR HEMOGLOBIN 31.7 pg (27.0-31.0); MEAN CORPUSCULAR HGB CONC 34.2 g/dL (32.0-36.0); MEAN CORPUSCULAR VOLUME 92.6 fL (81.0-99.0); MEAN PLATELET VOLUME 8.9 fL (7.9-10.8); MONOCYTES # (AUTO) 0.6 10^3/uL (0.0-1.0); MONOCYTES % (AUTO) 10.6 %; NEUTROPHILS # (AUTO) 3.5 10^3/uL (1.5-6.6); NEUTROPHILS % (AUTO) 65.2 %; PLT - PLATELET COUNT 390 10^3/uL (130-450); RED BLOOD COUNT 3.94 10^6/uL (4.20-5.40); RED CELL DISTRIBUTION WIDTH 13.3 % (12.0-15.0); WHITE BLOOD COUNT 5.3 x10^3/uL (4.8-10.8)
[2021-08-12 10:10] LABS: ALBUMIN 4.3 g/dL (3.2-5.5); ALBUMIN/GLOBULIN RATIO 1.8 (1.0-2.2); ALKALINE PHOSPHATASE 23 IU/L (42-121); ALT ALANINE AMINOTRANSFERASE 17 IU/L (10-60); AST ASPARTATE AMINOTRANSFERASE 24 IU/L (10-42); BILIRUBIN,TOTAL 0.2 mg/dL (0.2-1.0); BUN - BLOOD UREA NITROGEN 18 mg/dL (6-20); CALCIUM 9.3 mg/dL (8.5-10.3); CARBON DIOXIDE - CO2 27 mmol/L (21-32); CHLORIDE 101 mmol/L (101-111); CHOL/HDL RATIO 2.4 (<4.4); CHOLESTEROL 271 mg/dL; CREATININE 0.8 mg/dL (0.4-1.0); GFR - MDRD 72 (>89); GLUCOSE 118 mg/dL (70-100); HDL CHOLESTEROL 114 mg/dL; LDL CHOLESTEROL,CALCULATED 148 mg/dL; LDL/HDL RATIO 1.3 (<4.4); POTASSIUM 4.6 mmol/L (3.5-5.0); SODIUM 138 mmol/L (135-145); TOTAL PROTEIN 6.7 g/dL (6.7-8.2); TRIGLYCERIDES 44 mg/dL; VLDL CHOLESTEROL 9 mg/dL
[2021-08-12 10:21] LABS: THYROID STIMULATING HORMONE 1.56 uIU/mL (0.34-5.60)
[2021-08-12 10:23] LABS: FREE T4 (FREE THYROXINE) 0.93 ng/dL (0.58-1.64)
== END 2021-08-12 23:59 | disposition home or self-care (01) ==
LOC: LAB 08:00
PROVIDERS: ATTEND Physician Assistant
DX: Z00.00 Encounter for general adult medical examination without abnormal findings (principal); E03.9 Hypothyroidism, unspecified
CPT/HCPCS: 36415; 80053; 80061; 83721; 84439; 84443; 85025

== ENCOUNTER 2021-11-19 08:00 | Outpatient (CLI) | payer MEDICARE, OTHER ==
--- NOTE | 2021-11-19 13:07 | XRAY Report ---
PROCEDURE: Shoulder 3 View RT INDICATIONS: CONTUSION OF R SHOULDER TECHNIQUE: 3 views of the shoulder were acquired. COMPARISON: Right shoulder radiographs 04/26/2021. FINDINGS: Bones: No acute fractures or dislocations. No suspicious bony lesions. Visualized ribs appear inta ct. Mild AC joint hypertrophy redemonstrated. Possible minimal-mild glenohumeral joint degenerative changes. Soft tissues: No suspicious soft tissue calcifications. IMPRESSION: No acute osseous abnormality. If symptoms persist, follow-up radiographs and/or CT or MRI may be help ful for further evaluation. Reviewed by: Blake Drake MD on 11/19/2021 1:05 PM PDT Approved by: Blake Drake MD on 11/19/2021 1:05 PM PDT Station ID: [id number]
== END 2021-11-19 23:59 | disposition home or self-care (01) ==
LOC: DI.N 08:00
PROVIDERS: ATTEND Physician Assistant
DX: S40.011A Contusion of right shoulder, initial encounter (principal)

== ENCOUNTER 2021-12-06 07:32 | Outpatient (CLI) | payer MEDICARE, OTHER ==
--- NOTE | 2021-12-06 10:49 | MRI Report ---
PROCEDURE: SHOULDER WO - RT INDICATIONS: SHOULDER PAIN TECHNIQUE: Noncontrast oblique coronal T2 fast spin echo with fat saturation, oblique sagittal T1 spin echo and T2 fast spin echo with fat saturation, axial T1 spin echo and T2 fast spin echo with fat saturation t hrough the shoulder. COMPARISON: Right shoulder radiographs 11/19/2021. FINDINGS: Image quality: Excellent. Rotator cuff: There is full-thickness tearing of the supraspinatus tendon and the infraspinatus tendo n from the distal footprints with proximal tendon retraction measuring up to 3.5 cm from the distal i nsertion. Some of the posterior infraspinatus fibers are less severely retracted. There is mild atrop hy and grade 2-3 fatty infiltration of the supraspinatus and infraspinatus muscles. The teres minor t endon demonstrates mild tendinosis. There is high-grade partial intrasubstance tearing of the subscap ularis tendon at the superior insertion with mild atrophy and fatty infiltration of the superior port ion of the subscapularis muscle. Bones and bursae: No acute trabecular bone injury or fracture. The humeral head is high riding with m ild narrowing of the acromiohumeral interval. Moderate partial-thickness cartilage loss is seen at th e superior glenoid with marginal osteophyte formation in the glenoid rim and inferior humeral head. M oderate degenerative changes are seen in the acromioclavicular joint with subchondral cystic changes and edema and small marginal osteophytes. There is a moderate amount of fluid in the subacromial/subd eltoid bursa that communicates with a glenohumeral joint effusion. Fluid is also seen tracking into t he subcoracoid bursa and biceps long head tendon sheath. Capsule and soft tissues: There is nondisplaced tearing of the superior to posterosuperior labrum. T he proximal biceps long head tendon demonstrates severe tendinosis and partial intrasubstance tearing with perching along the medial aspect of the bicipital groove. There is effacement of the normal fat signal in the rotator interval. No capsular defect is seen. IMPRESSION: 1.Full-thickness tearing of the supraspinatus and infraspinatus tendons with proximal tendon retracti on measuring up to 3.5 cm. Mild atrophy and grade 2-3 fatty infiltration of the supraspinatus and inf raspinatus muscles. The humeral head is mildly high riding with narrowing of the acromiohumeral inter medina. Mild teres minor tendinosis. 2.High-grade partial intrasubstance tearing of the subscapularis tendon at the superior insertion. Th ere is mild atrophy and mild grade 2 fatty infiltration of the subscapularis muscle. 3.Severe biceps long head tendinosis and partial intrasubstance tearing with perching along the media l aspect of the bicipital groove. 4.Chronic minimally displaced tearing of the superior to posterosuperior labrum. Mild glenohumeral os teoarthrosis. 5.Moderate acromioclavicular osteoarthrosis. Glenohumeral joint fluid communicates with the subacromi al/subdeltoid and subcoracoid bursa. Reviewed by: Blake Crabtree MD on 12/06/2021 10:48 AM PDT Approved by: Blake Crabtree MD on 12/06/2021 10:48 AM PDT Station ID: [id number]
== END 2021-12-06 07:33 | disposition home or self-care (01) ==
LOC: DI 07:32
PROVIDERS: ATTEND Physician Assistant
DX: M75.121 Complete rotator cuff tear or rupture of right shoulder, not specified as traumatic (principal); S46.121A Laceration of muscle, fascia and tendon of long head of biceps, right arm, initial encounter; S43.431D Superior glenoid labrum lesion of right shoulder, subsequent encounter; M19.011 Primary osteoarthritis, right shoulder

== ENCOUNTER 2022-04-14 08:13 | Emergency (ER) | payer MEDICARE, OTHER ==
[2022-04-14] MEDS ORDERED: ONDANSETRON 4 MG/2 ML VIAL IVP STA (08:40)
[2022-04-14] MEDS ORDERED: SODIUM CHLORIDE 0.9% 1,000 ML IV STA (08:40)
--- NOTE | 2022-04-14 08:43 | ED Physician Documentation ---
History of Present Illness - Stated complaint Stated Complaint: NAUSEA/PETTY/DIZZY - Chief complaint Chief Complaint: General - History obtained from History obtained from: Patient - Additonal information Additional information: Patient is a 66-year-old female presenting for evaluation of headache and cough that have been ongoing for 2 weeks with associated lightheadedness. Patient reports getting sick 2 weeks ago with cough and congestion symptoms. Her sister also had similar symptoms. They continue for 1 week and last Thursday she was seen at the walk-in clinic and started on an antibiotic.She was given doxycycline as she has a penicillin allergy for a sinus infection along with Mucinex D. She completed the course of the antibiotic this morning. She continues to report feeling a fronto/temporal headache That feels like a lot of pressure and continues to have a harsh productive cough of clear sputum.She is also reported feeling lightheaded where she feels faint even while she is sitting up. She denies vertiginous symptoms with room spinning sensation or feeling off balance.She did have 1 episode of emesis this morning while at the clinic. She denies falls or hitting her head and does not take a blood thinner.She reports feeling slightly confused on Thursday when she was driving and had gotten the order of streets mixed up but has otherwise been acting per her usual self. Her who is with her has not noticed any abnormal behaviors, thought patterns or speech.She denies fever, chest pain, difficulty breathing, abdominal pain, dysuria, back pain. Review of Systems Constitutional: denies: Fever Nose: reports: Congestion Cardiac: denies: Chest pain / pressure Respiratory: reports: Cough GI: reports: Nausea. denies: Abdominal Pain, Diarrhea : denies: Dysuria Musculoskeletal: denies: Back pain Neurologic: reports: Headache. 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 HEENT: None Psych: Depression Musculoskeletal: None Derm: None - Past Surgical History Past Surgical History: Yes General: Appendectomy, Hiatal hernia repair Ortho: Knee replacement - Present Medications Home Medications: Ambulatory Orders Medication Instructions Recorded Confirmed Levothyroxine [Synthroid] 100 mcg ORAL DAILY 09/24/13 09/24/13 PARoxetine [Paxil] 20 mg ORAL DAILY 09/24/13 09/24/13 Docusate Sodium 100 mg PO DAILY #30 capsule 07/28/18 Hydrocodone/Acetaminophen [[place] 1 each PO Q6H PRN #15 tablet 07/28/18 5-325 Tablet] Naproxen 500 mg PO BID #20 tablet 07/28/18 Ondansetron Odt [Zofran] 4 mg TL Q6H PRN #20 tablet 07/28/18 - Allergies Allergies/Adverse Reactions: Allergies Allergy/AdvReac Type Severity Reaction Status Date / Time hydroxyzine Allergy Hallucinati Verified 04/14/22 08:28 ons Penicillins Allergy Hives Verified 04/14/22 08:28 morphine AdvReac Respiratory Verified 04/14/22 08:28 - Social History Does the pt smoke?: No Smoking Status: Never smoker Does the pt drink ETOH?: Yes Does the pt have substance abuse?: No - Immunizations Immunizations are current?: No Immunizations: TDAP >10years/unknown PD ED PE NORMAL - General General: Alert and oriented X 3, No acute distress, Well developed/nourished - HEENT HEENT: Atraumatic, PERRL, EOMI, Ears normal, Moist mucous membranes, Pharynx benign - Neck Neck: Supple, no meningeal sign, No bony TTP - Cardiac Cardiac: RRR, No murmur - Respiratory Respiratory: No respiratory distress, Clear bilaterally - Abdomen Abdomen: Normal bowel sounds, Soft, Non tender, Non distended - Derm Derm: Warm and dry - Extremities Extremities: No edema - Neuro Neuro: Alert and oriented X 3, wet process miller head 2-12 intact, No motor deficit, No sensory deficit, Normal speech, Other (Normal naldtr-ex-ymed and rapid alternating movements bilaterally, normal unassisted gait) Eye Opening: Spontaneous Motor: Obeys Commands Verbal: Oriented GCS Score: 15 Results - Vitals Vitals: Vital Signs - 24 hr 04/14/22 04/14/22 08:22 10:28 Temperature 36.8 C Heart Rate 63 61 Respiratory 20 20 Rate Blood Pressure 147/98 H 111/78 O2 Saturation 98 98 Oxygen O2 Source Room air - Labs Labs: Laboratory Tests 04/14/22 04/14/22 04/14/22 09:16 09:16 09:16 WBC 7.9 RBC 3.93 L Hgb 11.9 L Hct 35.4 L MCV 90.1 MCH 30.3 MCHC 33.6 RDW 12.3 Plt Count 429 MPV 8.7 Neut # (Auto) 5.7 Lymph # (Auto) 1.2 L [place] # (Auto) 0.6 Eos # (Auto) 0.3 Baso # (Auto) 0.1 Absolute Nucleated RBC 0.00 Nucleated RBC % 0.0 Sodium 131 L Potassium 3.9 Chloride 96 L Carbon Dioxide 26 Anion Gap 9.0 BUN 12 Creatinine 0.6 Estimated GFR (MDRD) 100 Glucose 103 H Calcium 9.0 Total Bilirubin 0.6 AST 30 ALT 25 Alkaline Phosphatase 33 L Total Protein 6.7 Albumin 3.9 Globulin 2.8 Albumin/Globulin Ratio 1.4 Lipase 36 Nasal Adenovirus (PCR) NOT DETECTED Nasal B. parapertussis DNA (PCR) NOT DETECTED Nasal Coronavir 229E PCR NOT DETECTED Nasal Coronavir HKU1 PCR NOT DETECTED Nasal Coronavir NL63 PCR NOT DETECTED Nasal Coronavir OC43 PCR NOT DETECTED Nasal Enterovir/Rhinovir PCR NOT DETECTED Nasal Influenza B PCR NOT DETECTED Nasal Influenza A PCR NOT DETECTED Nasal Parainfluen 1 PCR NOT DETECTED Nasal Parainfluen 2 PCR NOT DETECTED Nasal Parainfluen 3 PCR NOT DETECTED Nasal Parainfluen 4 PCR NOT DETECTED Nasal RSV (PCR) NOT DETECTED Nasal B.pertussis DNA PCR NOT DETECTED Nasal C.pneumoniae (PCR) NOT DETECTED [place] Human Metapneumo PCR NOT DETECTED Nasal M.pneumoniae (PCR) NOT DETECTED Nasal SARS-CoV-2 (PCR) NOT DETECTED PD Medical Decision Making - ED course Complexity details: reviewed results, re-evaluated patient, d/w patient, d/w family ED course: Patient presenting for evaluation of headache, lightheadedness, cough for 2 weeks.Her neuro exam is normal including cerebellar testing and clinically she does not have symptoms to suggest a stroke nor does her history suggest that. She does have URI symptoms and a headache that has been persistent for 2 weeks.[address] The CT imaging was ordered of her head which I reviewed and is unremarkable. I also reviewed her chest x-ray and do not see signs of an infiltrate. Labs were obtained given her reports of feeling lightheaded. Her hemoglobin is 11.9 which is similar to prior labs. Her sodium is mildly low at 131. She was given IV fluids, Zofran, Toradol And feels much better including resolution of her headache. Her respiratory panel is negative.I suspect that her symptoms are still likely related to getting over a recent viral infection and sinus infection. At this time I do not see reasons for hospitalization as she is feeling much better. Patient counseled on need for close follow-up with her PCP as well as advised on concerning symptoms to return for. Departure - Departure Disposition: 01 Home, Self Care Clinical Impression: Cephalalgia, Cough, Lightheadedness, Hyponatremia Condition: Stable Instructions: ED Cephalgia Unspecified, ED Hyponatremia Follow-Up: Sana Cisneros PA-C [Primary Care Provider] - Comments: The CT scan of your head and your chest x-ray are both clear. Your labs show mildly Low salt/sodium level Which could be related to how much fluid you are taking in. Please make sure you are staying hydrated and getting plenty of rest for the next several days. If you have any worsening symptoms please consider return to the emergency department. Otherwise I would encourage close follow-up with your primary care provider. Discharge Date/Time: 04/14/22 10:45
--- NOTE | 2022-04-14 09:10 | XRAY Report ---
PROCEDURE: Chest 1 View X-Ray INDICATIONS: cough x 2 weeks TECHNIQUE: One view of the chest was acquired. COMPARISON: None. FINDINGS: Surgical changes and devices: None. Lungs and pleura: No pleural effusions or pneumothorax. Lungs are clear. Mediastinum: Mediastinal contours appear normal. Heart size is normal. Bones and chest wall: No suspicious bony lesions. Overlying soft tissues appear unremarkable. IMPRESSION: No evidence of acute pulmonary process. Reviewed by: Jose Julian MD on 04/14/2022 9:09 AM [facility] Approved by: Jose Julian MD on 04/14/2022 9:09 AM [facility] Station ID: [id number]
--- NOTE | 2022-04-14 09:12 | CT Report ---
PROCEDURE: HEAD WO INDICATIONS: headache x 2 weeks TECHNIQUE: Noncontrast 4.5 mm thick angled axial sections acquired from the foramen magnum to the vertex. For r adiation dose reduction, the following was used: automated exposure control, adjustment of mA and/or kV according to patient size. COMPARISON: None. FINDINGS: Image quality: Excellent. CSF spaces: Basal cisterns are patent. No extra-axial fluid collections. Ventricles are normal in size and shape. Brain: No midline shift. No intracranial masses or hemorrhage. Gallardo-white matter interface is norm al. Skull and face: Calvarium and visualized facial bones are intact, without suspicious lesions. Sinuses: Visualized sinuses and mastoids are clear. IMPRESSION: No evidence of acute intracranial abnormality. Reviewed by: Jose Julian MD on 04/14/2022 9:10 AM PST Approved by: Jose Julian MD on 04/14/2022 9:10 AM [facility] Station ID: [id number]
[2022-04-14] MEDS ORDERED: KETOROLAC 30 MG/ML VIAL IVP STA (09:20)
[2022-04-14 09:31] LABS: BASOPHILS # (AUTO) 0.1 10^3/uL (0.0-0.1); BASOPHILS % (AUTO) 0.9 %; EOSINOPHILS # (AUTO) 0.3 10^3/uL (0.0-0.7); EOSINOPHILS % (AUTO) 3.2 %; HCT - HEMATOCRIT 35.4 % (37.0-47.0); HGB - HEMOGLOBIN 11.9 g/dL (12.0-16.0); LYMPHOCYTES # (AUTO) 1.2 10^3/uL (1.5-3.5); LYMPHOCYTES % (AUTO) 14.6 %; MEAN CORPUSCULAR HEMOGLOBIN 30.3 pg (27.0-31.0); MEAN CORPUSCULAR HGB CONC 33.6 g/dL (32.0-36.0); MEAN CORPUSCULAR VOLUME 90.1 fL (81.0-99.0); MEAN PLATELET VOLUME 8.7 fL (7.9-10.8); MONOCYTES # (AUTO) 0.6 10^3/uL (0.0-1.0); MONOCYTES % (AUTO) 8.1 %; NEUTROPHILS # (AUTO) 5.7 10^3/uL (1.5-6.6); NEUTROPHILS % (AUTO) 72.2 %; PLT - PLATELET COUNT 429 10^3/uL (130-450); RED BLOOD COUNT 3.93 10^6/uL (4.20-5.40); RED CELL DISTRIBUTION WIDTH 12.3 % (12.0-15.0); WHITE BLOOD COUNT 7.9 x10^3/uL (4.8-10.8)
[2022-04-14 09:47] LABS: ALBUMIN 3.9 g/dL (3.2-5.5); ALBUMIN/GLOBULIN RATIO 1.4 (1.0-2.2); BILIRUBIN,TOTAL 0.6 mg/dL (0.2-1.0); CREATININE 0.6 mg/dL (0.4-1.0); POTASSIUM 3.9 mmol/L (3.5-5.0); TOTAL PROTEIN 6.7 g/dL (6.7-8.2)
[2022-04-14 10:27] LABS: B. PARAPERTUSSIS- RESP PCR PAN NOT DETECTED; B. PERTUSSIS- RESP PCR PANEL NOT DETECTED; C. PNEUMONIAE- RESP PCR PANEL NOT DETECTED; CORONAVIRUS 229E-RESP PCR NOT DETECTED; CORONAVIRUS HKU1-RESP PCR NOT DETECTED; CORONAVIRUS NL63-RESP PCR NOT DETECTED; CORONAVIRUS OC43-RESP PCR NOT DETECTED; HUMAN METAPNEUMOVIRUS NOT DETECTED; INFLUENZA A- RESP PCR PANEL NOT DETECTED; INFLUENZA B - RESP PCR PANEL NOT DETECTED; M. PNEUMONIAE- RESP PCR PANEL NOT DETECTED; PARAINFLUENZA VIRUS 1 NOT DETECTED; PARAINFLUENZA VIRUS 2 NOT DETECTED; PARAINFLUENZA VIRUS 3 NOT DETECTED; PARAINFLUENZA VIRUS 4 NOT DETECTED; RHINOVIRUS/ENTEROVIRUS NOT DETECTED; RSV- RESP PCR PANEL NOT DETECTED; SARS-CoV-2 -RESP PCR PANEL NOT DETECTED
[2022-04-14 10:38] VITALS: BP 111/78
== END 2022-04-14 10:45 | disposition home or self-care (01) ==
LOC: ED 08:13
DX: R51.9 Headache, unspecified (principal); R05.9 Cough, unspecified; R42 Dizziness and giddiness; E87.1 Hypo-osmolality and hyponatremia; Z20.822 Contact with and (suspected) exposure to COVID-19
CPT/HCPCS: 36415; 80053; 83690; 85025; 87633; 93005; 96361; 96374; 96375; 99284

== ENCOUNTER 2022-08-11 07:14 | Outpatient (CLI) | payer MEDICARE, OTHER ==
[2022-08-11 07:37] LABS: BASOPHILS # (AUTO) 0.1 10^3/uL (0.0-0.1); BASOPHILS % (AUTO) 1.6 %; EOSINOPHILS # (AUTO) 0.2 10^3/uL (0.0-0.7); EOSINOPHILS % (AUTO) 4.9 %; HCT - HEMATOCRIT 39.1 % (37.0-47.0); HGB - HEMOGLOBIN 13.3 g/dL (12.0-16.0); LYMPHOCYTES # (AUTO) 1.3 10^3/uL (1.5-3.5); LYMPHOCYTES % (AUTO) 30.3 %; MEAN CORPUSCULAR HEMOGLOBIN 30.9 pg (27.0-31.0); MEAN CORPUSCULAR VOLUME 90.7 fL (81.0-99.0); MEAN PLATELET VOLUME 9.1 fL (7.9-10.8); MONOCYTES # (AUTO) 0.5 10^3/uL (0.0-1.0); MONOCYTES % (AUTO) 12.7 %; NEUTROPHILS # (AUTO) 2.1 10^3/uL (1.5-6.6); NEUTROPHILS % (AUTO) 50.3 %; PLT - PLATELET COUNT 359 10^3/uL (130-450); RED BLOOD COUNT 4.31 10^6/uL (4.20-5.40); RED CELL DISTRIBUTION WIDTH 12.7 % (12.0-15.0); WHITE BLOOD COUNT 4.3 x10^3/uL (4.8-10.8)
[2022-08-11 07:59] LABS: ALBUMIN 4.1 g/dL (3.2-5.5); ALBUMIN/GLOBULIN RATIO 1.5 (1.0-2.2); ALKALINE PHOSPHATASE 26 IU/L (42-121); ALT ALANINE AMINOTRANSFERASE 18 IU/L (10-60); AST ASPARTATE AMINOTRANSFERASE 25 IU/L (10-42); BILIRUBIN,TOTAL 0.6 mg/dL (0.2-1.0); BUN - BLOOD UREA NITROGEN 18 mg/dL (6-20); CALCIUM 9.2 mg/dL (8.5-10.3); CARBON DIOXIDE - CO2 27 mmol/L (21-32); CHLORIDE 105 mmol/L (101-111); CHOL/HDL RATIO 2.1 (<4.4); CHOLESTEROL 248 mg/dL; CREATININE 0.6 mg/dL (0.4-1.0); GFR - MDRD 100 (>89); GLUCOSE 98 mg/dL (70-100); HDL CHOLESTEROL 117 mg/dL; LDL CHOLESTEROL,CALCULATED 118 mg/dL; POTASSIUM 4.4 mmol/L (3.5-5.0); SODIUM 139 mmol/L (135-145); TOTAL PROTEIN 6.9 g/dL (6.7-8.2); TRIGLYCERIDES 66 mg/dL; VLDL CHOLESTEROL 13 mg/dL
[2022-08-11 08:11] LABS: THYROID STIMULATING HORMONE 2.6 uIU/mL (0.34-5.60)
[2022-08-11 08:13] LABS: FREE T4 (FREE THYROXINE) 0.8 ng/dL (0.58-1.64)
[2022-08-11 12:38] LABS: ESTIMATED AVERAGE GLUCOSE 111 mg/dL (70-100); HEMOGLOBIN A1c% 5.5 % (4.27-6.07)
== END 2022-08-11 07:15 | disposition home or self-care (01) ==
LOC: LAB 07:14
PROVIDERS: ATTEND Physician Assistant
DX: E03.9 Hypothyroidism, unspecified (principal); E78.5 Hyperlipidemia, unspecified; R73.01 Impaired fasting glucose
CPT/HCPCS: 36415; 80053; 80061; 83036; 83721; 84439; 84443; 85025

== ENCOUNTER 2022-08-13 13:31 | Outpatient (CLI) | payer MEDICARE, OTHER ==
--- NOTE | 2022-08-14 09:26 | Mammography Report ---
BILATERAL DIGITAL SCREENING MAMMOGRAM 3D/2D: 08/13/2022 CLINICAL: Routine screening. Comparison is made to exams dated: 07/20/2020 mammogram - [facility], 07/16/2017 mamm ogram, 06/22/2017 mammogram, 05/07/2017 mammogram, 03/07/2015 mammogram, and 12/10/2012 mammogram - [facility]. Both breasts are heterogeneously dense, which may obscure small masses (category c / 51-75% glandular tissue). There is a biopsy clip in the left breast. No significant masses, calcifications, or other findings are seen in either breast. There has been no significant interval change. IMPRESSION: NEGATIVE There is no mammographic evidence of malignancy. A 1 year screening mammogram is recommended. Based on the Tyrer Cuzick model (a risk assessment model) the patients lifetime risk is 8.0% and her 10 year risk is 4.2%. According to the ACR, ACS, and NCCN guidelines, an annual breast MRI exam leticia g with mammogram is recommended if the patients lifetime risk is 20% or greater. This exam was interpreted at Station ID: [id number]. NOTE: For mammograms, a report in lay terms will be sent to the patient. Approximately 15% of breast malignancies will not be visualized mammographically. In the management of a palpable breast mass, a negative mammogram must not discourage biopsy of a clinically suspicious lesion. Electronically Signed By: Augie eddy/kaylee:08/13/2022 17:06:05 letter sent: No_Letter ACR BI-RADS Category 1: Negative 3341F PARENCHYMAL PATTERN: (D) - The breast(s) demonstrate(s) heterogeneously dense fibroglandular tim ho. BI-RADS CATEGORY: (1) - 1 Mammogram [id number] 1 year screening LATERALITY: (B)
== END 2022-08-13 13:32 | disposition home or self-care (01) ==
LOC: DI 13:31
DX: Z12.31 Encounter for screening mammogram for malignant neoplasm of breast (principal)

== ENCOUNTER 2022-11-28 15:15 | Outpatient (CLI) | payer MEDICARE, OTHER ==
[2022-11-28 18:18] LABS: BASOPHILS # (AUTO) 0.1 10^3/uL (0.0-0.1); EOSINOPHILS # (AUTO) 0.1 10^3/uL (0.0-0.7); EOSINOPHILS % (AUTO) 2.7 %; HCT - HEMATOCRIT 40.6 % (37.0-47.0); HGB - HEMOGLOBIN 13.2 g/dL (12.0-16.0); LYMPHOCYTES # (AUTO) 1.3 10^3/uL (1.5-3.5); LYMPHOCYTES % (AUTO) 24.9 %; MEAN CORPUSCULAR HEMOGLOBIN 30.7 pg (27.0-31.0); MEAN CORPUSCULAR HGB CONC 32.5 g/dL (32.0-36.0); MEAN CORPUSCULAR VOLUME 94.4 fL (81.0-99.0); MEAN PLATELET VOLUME 9.5 fL (7.9-10.8); MONOCYTES # (AUTO) 0.5 10^3/uL (0.0-1.0); MONOCYTES % (AUTO) 9.7 %; NEUTROPHILS # (AUTO) 3.2 10^3/uL (1.5-6.6); NEUTROPHILS % (AUTO) 61.5 %; PLT - PLATELET COUNT 386 10^3/uL (130-450); RED CELL DISTRIBUTION WIDTH 12.8 % (12.0-15.0); WHITE BLOOD COUNT 5.2 x10^3/uL (4.8-10.8)
[2022-11-28 18:33] LABS: ALBUMIN 4.5 g/dL (3.2-5.5); ALBUMIN/GLOBULIN RATIO 2.5 (1.0-2.2); BILIRUBIN,TOTAL 0.5 mg/dL (0.2-1.0); CALCIUM 9.5 mg/dL (8.5-10.3); CREATININE 0.9 mg/dL (0.6-1.3); POTASSIUM 4.3 mmol/L (3.5-4.5); TOTAL PROTEIN 6.3 g/dL (6.4-8.9)
[2022-11-28 18:43] LABS: THYROID STIMULATING HORMONE 0.78 uIU/mL (0.34-5.60)
== END 2022-11-28 15:30 | disposition home or self-care (01) ==
LOC: LAB.N 15:15
PROVIDERS: ATTEND Family Medicine
DX: R53.83 Other fatigue (principal); R53.81 Other malaise
CPT/HCPCS: 36415; 80053; 84443; 85025

== ENCOUNTER 2023-01-03 09:30 | Outpatient (CLI) | payer MEDICARE, OTHER ==
--- NOTE | 2023-01-05 10:53 | MRI Report ---
PROCEDURE: CERVICAL SPINE WO INDICATIONS: CERVICAL RADICULOPATHY TECHNIQUE: Noncontrast sagittal T1 spin echo and T2 fast spin echo, sagittal STIR, foraminal oblique sagittal T2 fast spin echo, and axial gradient echo or T2 fast spin echo through the cervical spine. COMPARISON: None. FINDINGS: Image quality: Excellent. Alignment and Curvature: There is normal bony alignment. Bone Marrow: Marrow demonstrates normal overall signal. Spinal Cord: Visualized spinal cord has normal size and signal. No cerebellar tonsillar herniation. Paraspinous Soft Tissues: No paravertebral masses. Prevertebral soft tissues are normal in thicknes s. C2-C3: Left facet hypertrophy. No canal stenosis or foraminal stenosis. C3-C4: Diffuse posterior disc plus osteophyte. Bilateral uncovertebral joint hypertrophy. Bilateral facet hypertrophy, prominent bilaterally. Moderate right foraminal narrowing with flattening deformi ty on the exiting right C4 nerve root. Severe left foraminal narrowing with left foraminal C4 nerve r oot impingement. C4-C5: Diffuse posterior disc plus osteophyte, eccentric to the left. Bilateral uncovertebral joint hypertrophy. Mild right facet hypertrophy and prominent left facet hypertrophy. Mild right foraminal narrowing. Moderate to severe left foraminal narrowing with left foraminal C5 nerve root impingement. C5-C6: Chronic disc height loss. Diffuse prominent posterior disc osteophyte complex with prominent bilateral uncovertebral joint hypertrophy. AP diameter of the central canal is 10.0 mm. There is bila teral facet hypertrophy. There is severe bilateral foraminal narrowing with bilateral foraminal C6 ne rve root impingement. C6-C7: Chronic disc height loss. Diffuse posterior disc plus osteophyte. AP diameter of the central canal is 10.7 mm. Prominent right uncovertebral joint hypertrophy. Bilateral facet hypertrophy. Moder ate to severe right foraminal narrowing with a degree of right foraminal C7 nerve root impingement. T here is mild left foraminal narrowing. C7-T1: No canal stenosis or foraminal stenosis. IMPRESSION: 1. There is diffuse underlying spondylitic change with multilevel chronic disc height loss, uncoverte bral joint hypertrophy, and facet hypertrophy. Facet hypertrophy is prominent at multiple levels. 2. There is borderline canal stenosis at C5-C6. 3. Significant multilevel foraminal narrowing with multilevel foraminal nerve root impingement, as de scribed above. Findings include severe left foraminal narrowing at C3-C4, moderate to severe left for aminal narrowing at C4-C5, severe bilateral foraminal narrowing at C5-C6, and moderate to severe righ t foraminal narrowing at C6-C7. Reviewed by: Jose Julian MD on 01/05/2023 10:52 AM PST Approved by: Jose Julian MD on 01/05/2023 10:52 AM PST Station ID: [id number]
== END 2023-01-03 09:31 | disposition home or self-care (01) ==
LOC: DI 09:30
PROVIDERS: ATTEND Physician Assistant
DX: M50.10 Cervical disc disorder with radiculopathy, unspecified cervical region (principal); M47.22 Other spondylosis with radiculopathy, cervical region; M48.02 Spinal stenosis, cervical region

== ENCOUNTER 2023-03-12 08:10 | Outpatient (CLI) | payer MEDICARE, OTHER ==
[2023-03-12 08:38] LABS: CALCIUM 9.3 mg/dL (8.5-10.3); CREATININE 0.7 mg/dL (0.6-1.3); POTASSIUM 4.3 mmol/L (3.5-4.5)
== END 2023-03-12 08:11 | disposition home or self-care (01) ==
LOC: LAB 08:10
PROVIDERS: ATTEND Physician Assistant
DX: R94.4 Abnormal results of kidney function studies (principal)
CPT/HCPCS: 36415; 80048

== ENCOUNTER 2023-04-01 09:36 | Outpatient (CLI) | payer MEDICARE, OTHER ==
--- NOTE | 2023-04-01 10:10 | Sleep Patient Instructions ---
Sleep Center Visit Summary - Patient Visit Information Reason for Visit: Initial consult for evaluation of sleep disordered breathing and other sleep issues. - Patient Instructions Instructions Attached: Sleep Study Additional Instructions: You will be completing a sleep study, either an in-lab polysomnography (PSG) or home sleep study (HST). You will follow-up in the sleep care office after the sleep study is completed to hear the results and talk about therapy, if needed. You will be called by our office staff to schedule this appointment, but you may contact us with any questions. - Clinic Information Contact: [facility] [address] [place] [email or web address] T: [phone]
--- NOTE | 2023-04-01 10:17 | SLEEP CARE CONSULTATION ---
Information from patient questionnaire entered by Brendan Henry. I have reviewed and concur with the information entered by Brendan Henry. This document represents the service I personally performed and the decisions made by me, Maria Luisa Sen ARNP. History of Present Illness Service Date and Time: 04/01/2023 0936 Reason for Visit: New patient Chief Complaint: reports: Unrefreshed sleep, Observed pauses in breathing, Fatigue Date of Onset: 1YR Usual bedtime: 10-1030PM Time it takes to fall asleep: 30-120MINS Snores at night: Yes Observed to quit breathing while asleep: Yes Sleeps alone due to snoring: No Number of times waking at night: 1-3 Reasons for waking at night: reports: Bathroom Toss, Turn, or Twitch while sleeping: Yes Recalls having dreams: Yes Usually gets out of bed at: 830AM Feels refreshed in the morning: No Morning headache: No Sleepy or fatigued during the day: Yes (no unintentional naps) Ever fallen asleep while driving: No Takes day naps: No Prior sleep studies: No Additional HPI information: I had the pleasure of seeing JOSE LUIS CELESTE today regarding the possibility of her having a sleep disorder. Her current complaints are unrefreshed sleep, fatigue and observed pauses in breathing. She says that she is always tired. Her partner is telling her that she is stopping breathing and gasping in her sleep. She does not wake up feeling refreshed. She can take 30 minutes-2 hours to go to sleep. She will get up couple times a night to use the bathroom and sometimes it will take a little while to get back to sleep. She has been told that she snores, "medium snore" in loudness. She has been also having some jaw soreness. She had an implant done where the final fitting was delayed but she says the dentist says her bite is fine. She does not think that she has bruxism. She also tells me that she has had issues with difficulty swallowing and had an endoscopy which showed a "shelf" in her throat that comes/goes. She is careful when swallowing. She says her sister was just diagnosed with sleep apnea. - Parasomnia Symptoms Ever been unable to move upon waking from sleep: No Walks in sleep: No Talks in sleep: No Ever acted out dreams in sleep: Yes ("abrupt jerk" like just suddenly fell off something when dreaming) Ever felt weak in the knees when startled or emotional: Yes (has not fallen to ground) Bothered by creepy, crawly, restless sensations in legs: No Problems with memory or concentration: No Subjective Initial [place] Sleepiness Scale score: 4 (03/03/23) Past Medical History Past Medical History: reports: Arthritis, Hypothyroidism, Depression Social History The patient's occupation is a RE. Patient is Single and lives in [place]. Have you smoked in the past 12 months: No Alcohol use: Yes Alcohol amount and frequency: 2 GLASSES WINE 3 XWEEK Caffeine use: Yes Caffeine amount and frequency: 2 CUPS COFFEE 2 CUPS BLACK TEA Family History Family history of sleep disordered breathing: Yes Family Hx Sleep Apnea: Sibling: Snoring, Sleep apnea - Treated Allergies and Home Medications Known drug allergies: Yes (as listed) Drug allergies reviewed: Yes Home medication list reviewed: Yes Allergy and home medication list: Allergies hydroxyzine Allergy (Verified 03/30/23 09:56) Hallucinations Penicillins Allergy (Verified 03/30/23 09:56) Hives morphine Adverse Reaction (Verified 03/30/23 09:56) Respiratory Home Medications Medication Instructions Recorded Confirmed Last Taken Type Levothyroxine [Synthroid] 100 mcg ORAL DAILY 09/24/13 04/01/23 05/31/20 History PARoxetine [Paxil] 20 mg ORAL DAILY 09/24/13 04/01/23 05/31/20 History Cholecalciferol [Vitamin D3] See Rx Instructions .ROUTE .COMPLEX 04/01/23 04/01/23 Unknown History [place]-3/Dha/Epa/Fish Oil [Fish Oil See Rx Instructions .ROUTE .COMPLEX 04/01/23 04/01/23 Unknown History 1,000 mg Softgel] Review of Systems Weight gain over past 5 years: 5 Cardiovascular: reports: irregular heart rate or pulse. denies: high blood pressure Gastrointestinal: denies: heartburn Urinary: reports: frequency Neurological: reports: headaches, gait or balance problems. denies: head trauma Psychiatric: reports: depression Ear/Nose/Throat: denies: injury to nose, tonsillectomy Endocrine: reports: thyroid disease, sluggishness Musculoskeletal: reports: joint pain, neck pain, back pain, joint swelling Physical Exam Vital signs obtained and entered by: BRENDAN Rosario MA Blood Pressure: 126/72 (LEFT ARM) Cuff size: regular Heart Rate: 64 O2 Saturation: 97 Height: 5 ft 7.5 in Weight: 166 lb 9.6 oz Body Mass Index: 25.7 BMI Classification: Overweight Neck circumference: 14 Mouth and throat: narrow oropharynx Soft palate: long Hard palate: normal Uvula: normal Uvula visualization: 25% Mallampati Class III Tongue: enlarged in size with teeth newell on lateral edges Tonsils: small Neck: normal w/o lymphadenopathy or thyromegaly Heart: regular rate and rhythm Lungs: clear bilaterally Impression and Plan 1. Suspected Obstructive Sleep Apnea-Hypopnea Syndrome, as suggested by a history of loud and irregular snoring, observed cessation of breath while asleep, gasping or choking in sleep and unrefreshed sleep. Narrow oropharynx and obesity are common predisposing factors for obstructive sleep apnea-hypopnea syndrome. I recommend proceeding to polysomnography to confirm the diagnosis and to assess severity. If the patient has significant sleep disordered breathing, a manual CPAP titration study will also be performed to find the optimal treatment pressure. I informed the patient of what the sleep studies involve and after some discussion, obtained agreement to proceed. The pathophysiology of obstructive sleep apnea-hypopnea syndrome was discussed with the patient and health risks of cardiovascular and cerebrovascular disease if not treated. Risks of drowsy driving discussed in detail and patient advised to avoid long distance driving and to breast puller at the first sign of drowsiness. Patient agreed to plan. * Schedule polysomnography +- manual CPAP titration study and return in 1-2 weeks after the study to discuss result and initiate therapy. * Avoid long distance driving or driving when feeling sleepy. * Avoid alcohol, sedative and muscle relaxant around bedtime. * Attempt to lose weight. * Review instructions provided by trained office staff on how to prepare for the sleep study. * Return for follow-up after sleep study completed. Counseling Topics: Weight loss health impact Plan: PSG Visit Type: In Office Time Spent with Patient (minutes): 30 Provider Statement: I spent 100% of the Face to Face Visit with the patient with greater than 50% spent counseling the patient and coordination of care.
[2023-04-01 10:28] VITALS: BP 126/72; O2SAT 97
== END 2023-04-01 09:37 | disposition home or self-care (01) ==
LOC: SC 09:36
PROVIDERS: ATTEND Nurse Practitioner Family
DX: G47.8 Other sleep disorders (principal); R06.83 Snoring; R53.83 Other fatigue; R06.81 Apnea, not elsewhere classified; E66.3 Overweight; Z68.25 Body mass index [BMI] 25.0-25.9, adult
CPT/HCPCS: 99203; G0463; 99212

== ENCOUNTER 2023-04-13 20:26 | Outpatient (CLI) | payer MEDICARE, OTHER | END 2023-04-13 20:27 | disposition home or self-care (01) | LOC: SC 20:26 | PROVIDERS: ATTEND Nurse Practitioner Family | DX: G47.33 Obstructive sleep apnea (adult) (pediatric) (principal) | CPT/HCPCS: 95810 ==

== ENCOUNTER 2023-05-05 09:12 | Outpatient (CLI) | payer MEDICARE, OTHER ==
--- NOTE | 2023-05-05 09:38 | Sleep Patient Instructions ---
Sleep Center Visit Summary - Patient Visit Information Reason for Visit: Sleep study follow-up - Patient Instructions Additional Instructions: You are to start Positional therapy to control your sleep apnea. You may obtain positional belts or other commercial devices online. You may also use pillows to position yourself on your side or a T shirt with balls sewn into the back to help keep you on your side to sleep. We would like to follow up with you in a month to check effectiveness of therapy. Please call office to schedule a follow up appointment in the sleep care office in 1-2 months. - Clinic Information Contact: [facility] [address] [place] [address] [email or web address] T: [phone]
--- NOTE | 2023-05-05 09:42 | SLEEP CARE CONSULTATION ---
Information from patient questionnaire entered by Gloria Henry. I have reviewed and concur with the information entered by Gloria Henry. This document represents the service I personally performed and the decisions made by , Maria Luisa Sen ARNP. History of Present Illness Service Date and Time: 05/05/2023911 Initial [place] Sleepiness Scale score: 4 (03/03/23) Current [place] Sleepiness Scale score: 5 Additional HPI information: JOSE LUIS CELESTE returns for follow up and results of the recently performed polysomnography. The sleep study showed mild obstructive sleep apnea with an average AHI of 10.4 and rosas oxygen saturation of 84%. I explained the pathophysiology behind obstructive sleep apnea. We then spent quite a bit of time discussing different treatment options. For mild obstructive sleep apnea, surgery and oral appliance are alternatives to nasal CPAP therapy but in moderate or severe cases, nasal CPAP is the most effective and reliable treatment. Because apnea is primarily in supine position, then positional management therapy could be effective. Methods discussed such as positioning with pillows, using a T-shirt with tennis balls in the back or commercial products that have a pillow format on back to prevent supine sleep. I reviewed the impact of weight changes on sleep apnea and strongly recommended losing weight. After some discussion, the patient opted to go with Positional therapy Patient counseled not drink alcohol less than 4 hours before bedtime as it can increase snoring and apnea. Patient was cautioned about risks of drowsy driving until sleepiness symptoms resolve. Patient denies drowsy driving. Sleep Study - Results Type of Sleep Study: Polysomnography (COMPLETED 04/13/23) Prior sleep studies: No Polysomnography/Home Sleep Study results: IMPRESSION: The quality of the study is good. The patient had slightly reduced sleep efficiency due to sleep onset insomnia. The sleep architecture was abnormal for sleep fragmentation and reduced amount of time spent in slow wave sleep (N3). Respiratory monitoring showed mild obstructive sleep apnea- hypopnea (AHI = 10.4) associated with frequent arousals, oxyhemoglobin desaturation and mild hypoxia (rosas oxygen saturation of 84%). The respiratory events occurred almost exclusively during supine sleep (supine AHI = 23.4; non-supine = 0.32). Snore was moderate in intensity. There was no significant periodic leg movement of sleep. Cardiac rhythm was normal sinus rhythm without significant arrhythmia. No abnormal behavior (parasomnia) observed during the night. Allergies and Home Medications Known drug allergies: Yes (as listed) Drug allergies reviewed: Yes Home medication list reviewed: Yes (no changes) Allergy and home medication list: Allergies hydroxyzine Allergy (Verified 04/01/23 09:41) Hallucinations Penicillins Allergy (Verified 04/01/23 09:41) Hives morphine Adverse Reaction (Verified 04/01/23 09:41) Respiratory Review of Systems Review of systems same as previous: Yes (no changes) Physical Exam Vital signs obtained and entered by: MARIA LUISA JAIMES-Abraham Blood Pressure: 125/75 Cuff size: regular (left arm) Heart Rate: 66 O2 Saturation: 95 Height: 5 ft 8 in Weight: 170 lb 12.8 oz Body Mass Index: 25.9 BMI Classification: Overweight Impression and Plan 1. Obstructive Sleep Apnea-Hypopnea Syndrome, mild, with lowest oxygen saturation of 84%. Obviously this is the cause of the patients symptoms of unrefreshed sleep, and excessive daytime sleepiness. Positive pressure therapy could benefit depression. Since patients apnea is primarily in supine position, patient advised to try positional therapy and agreed with plan. She is also advised to maintain a healthy weight as this will reduce snoring and apnea. An oral appliance can also be used for snoring but often is not covered by insurance. Follow up is scheduled for one month to check effectiveness. 2. Hypoxemia, mild, with a rosas oxygen saturation of 84% and 6.9 minutes spent under 90%. The baseline oxygen saturation was normal with an average oxygen saturation of 93%. 3. Overweight, unspecified. Currently patients BMI is 25.9. Obesity increases the risk of apnea, CPAP pressure requirements and overall health risks especially cardiovascular and diabetes. Thus patient is advised to maintain healthy weight. * Positional therapy * Maintain a healthy weight. * Avoid alcohol consumption near bedtime. * Avoid supine sleep. * Return in 1-2 months. I will assess response to therapy at that time. Counseling Topics: Sleeping position, Weight control Follow up with Sleep Care in: 1-2 months (for positional therapy) Visit Type: In Office Time Spent with Patient (minutes): 21 Provider Statement: I spent 100% of the Face to Face Visit with the patient with greater than 50% spent counseling the patient and coordination of care.
[2023-05-05 09:48] VITALS: BP 125/75; O2SAT 95
== END 2023-05-05 09:13 | disposition home or self-care (01) ==
LOC: SC 09:12
PROVIDERS: ATTEND Nurse Practitioner Family
DX: G47.33 Obstructive sleep apnea (adult) (pediatric) (principal); E66.3 Overweight; Z68.25 Body mass index [BMI] 25.0-25.9, adult
CPT/HCPCS: 99213; G0463; 99212

== ENCOUNTER 2023-05-07 15:04 | Outpatient (CLI) | payer MEDICARE, OTHER ==
--- NOTE | 2023-05-07 17:27 | DEXA Report ---
PROCEDURE: Dexa Spine and/or Hip INDICATIONS: POST MENOPAUSAL TECHNIQUE: Dual energy x-ray absorptiometry (DXA) was performed on a [employer] System. Regions measur ed are the AP Spine, femoral neck, and if needed forearm. COMPARISON: A 04/26/2021 FINDINGS: Lumbar Spine: Bone Mineral Density: 1.377 g/cm/cm,T score: 1.6, compared to 1.4. Left Femoral Neck: Bone Mineral Density: 0.971 g/cm/cm, T score: -0.5, compared to -0.6. Left Hip: Bone Mineral Density: 1.078 g/cm/cm,T score: 0.6, compared to 0.5. (T score greater or equal to -1.0: NORMAL) (T score from -1.1 to -2.4: OSTEOPENIA) (T score less than or equal to -2.5 to: OSTEOPOROSIS) Impression: By WHO criteria, this patient has normal bone mineral density relatively stable. Patients with diagnosis of osteoporosis or osteopenia should have regular bone mineral density assess ment. For those eligible for Medicare, routine testing is allowed once every 2 years. Testing frequ ency can be increased for patients who have rapidly progressing disease or for those who are receivin g medical therapy to restore bone mass. Reviewed by: Charlotte Arreguin MD on 05/07/2023 5:26 PM PDT Approved by: Charlotte Arreguin MD on 05/07/2023 5:26 PM PDT Station ID: [id number]
== END 2023-05-07 15:05 | disposition home or self-care (01) ==
LOC: DI 15:04
PROVIDERS: ATTEND Physician Assistant
DX: Z78.0 Asymptomatic menopausal state (principal)

== ENCOUNTER 2023-09-27 18:42 | Outpatient (CLI) | payer MEDICARE, OTHER | END 2023-09-27 18:43 | disposition home or self-care (01) | LOC: LAB 18:42 | PROVIDERS: ATTEND Physician Assistant | DX: Z00.00 Encounter for general adult medical examination without abnormal findings (principal); E78.5 Hyperlipidemia, unspecified; E03.9 Hypothyroidism, unspecified | CPT/HCPCS: 80053; 80061; 83721; 84439; 84443; 85025 ==

== ENCOUNTER 2023-09-28 07:22 | Outpatient (CLI) | payer MEDICARE, OTHER ==
[2023-09-28 08:04] LABS: BASOPHILS # (AUTO) 0.1 10^3/uL (0.0-0.1); BASOPHILS % (AUTO) 1.5 %; EOSINOPHILS # (AUTO) 0.2 10^3/uL (0.0-0.7); EOSINOPHILS % (AUTO) 4.7 %; HCT - HEMATOCRIT 40.9 % (37.0-47.0); HGB - HEMOGLOBIN 13.9 g/dL (12.0-16.0); LYMPHOCYTES # (AUTO) 1.4 10^3/uL (1.5-3.5); LYMPHOCYTES % (AUTO) 29.1 %; MEAN CORPUSCULAR HEMOGLOBIN 31.2 pg (27.0-31.0); MEAN CORPUSCULAR VOLUME 91.9 fL (81.0-99.0); MEAN PLATELET VOLUME 8.9 fL (7.9-10.8); MONOCYTES # (AUTO) 0.5 10^3/uL (0.0-1.0); MONOCYTES % (AUTO) 11.3 %; NEUTROPHILS # (AUTO) 2.5 10^3/uL (1.5-6.6); PLT - PLATELET COUNT 410 10^3/uL (130-450); RED BLOOD COUNT 4.45 10^6/uL (4.20-5.40); RED CELL DISTRIBUTION WIDTH 13.2 % (12.0-15.0); WHITE BLOOD COUNT 4.7 x10^3/uL (4.8-10.8)
[2023-09-28 08:07] LABS: ALBUMIN 4.3 g/dL (3.2-5.5); ALBUMIN/GLOBULIN RATIO 1.9 (1.0-2.2); ALKALINE PHOSPHATASE 26 IU/L (42-121); ALT ALANINE AMINOTRANSFERASE 12 IU/L (10-60); AST ASPARTATE AMINOTRANSFERASE 21 IU/L (10-42); BILIRUBIN,TOTAL 0.7 mg/dL (0.2-1.0); BUN - BLOOD UREA NITROGEN 12 mg/dL (6-20); CALCIUM 9.7 mg/dL (8.5-10.3); CARBON DIOXIDE - CO2 29 mmol/L (21-32); CHLORIDE 101 mmol/L (101-111); CHOL/HDL RATIO 2.4 (<4.4); CHOLESTEROL 251 mg/dL; CREATININE 0.7 mg/dL (0.6-1.3); GFR - MDRD 83 (>89); GLUCOSE 93 mg/dL (74-104); HDL CHOLESTEROL 103 mg/dL; LDL CHOLESTEROL,CALCULATED 130 mg/dL; LDL/HDL RATIO 1.3 (<4.4); POTASSIUM 4.6 mmol/L (3.5-4.5); SODIUM 136 mmol/L (135-145); TOTAL PROTEIN 6.6 g/dL (6.4-8.9); TRIGLYCERIDES 91 mg/dL; VLDL CHOLESTEROL 18 mg/dL
== END 2023-09-28 07:23 | disposition home or self-care (01) ==
LOC: LAB 07:22
PROVIDERS: ATTEND Physician Assistant
DX: Z00.00 Encounter for general adult medical examination without abnormal findings (principal); E78.5 Hyperlipidemia, unspecified; E03.9 Hypothyroidism, unspecified
CPT/HCPCS: 36415; 80053; 80061; 83721; 84439; 84443; 85025